=== PATIENT | female | born 1975 | race Two or more races ===

== ENCOUNTER 2017-02-01 08:23 | Emergency (ER) | payer OTHER ==
[2017-02-01 08:29] VITALS: TEMP 98.3; BMI 28.8
[2017-02-01] MEDS ORDERED: SODIUM CHLORIDE 0.9% 1000 ML INFUS.BAG IV ONE (09:06)
--- NOTE | 2017-02-01 09:15 | PDOC ---
History of Present Illness - General Chief Complaint: Vaginal Bleeding Stated Complaint: abd pain/ VAGINAL BLEEDING Time Seen by Provider: 02/01/17 08:34 History Source: Patient Exam Limitations: Language Barrier (Supervisor Front and nurse used for interpretation) - History of Present Illness Initial Comments: 02/01/17 09:09 The patient is a 41F with a PMH of anemia and colon CA s/p resection who presents to the ED with complaints of abdominal pain. An natural resources engineer was used and I had a nurse at bedside that helped me interpret as well. The patient states that she has had vaginal bleeding x 2 months. She has had worsening suprapubic abdominal pain with clots passing x 5 days. She states the pain feels like her menstrual cramps. It has been intermediate, worsening abdominal pain. The patient has a hx of colon ca s/p resection and had a colonoscopy yesterday to monitor for colon ca progression. She states that her abdominal pain has been worsened since the colonoscopy. All: none Surg: colon resection 1 year ago Past History - Past Medical History Allergies/Adverse Reactions: Allergies Allergy/AdvReac Type Severity Reaction Status Date / Time No Known Allergies Allergy Verified 02/01/17 08:25 Home Medications: Ambulatory Orders NK [No Known Home Medication] 02/01/17 Anemia: Yes Suicide Attempt (Hx): No - Surgical History Abdominal Surgery: Yes (colon) - Immunization History Immunization Up to Date: Yes - Psycho/Social/Smoking Cessation Hx Anxiety: No Suicidal Ideation: No Smoking History: Never smoked Have you smoked in the past 12 months: No Information on smoking cessation initiated: No Hx Alcohol Use: No Drug/Substance Use Hx: No Substance Use Type: None Hx Substance Use Treatment: No Review of Systems - Review of Systems Able to Perform ROS?: Yes (Vice Provost used) Is the patient limited Yoruba proficient: Yes Constitutional: Yes: Fever (x 5 days). No: Chills Respiratory: No: Shortness of Breath Cardiac (ROS): No: Chest Pain, Chest Tightness ABD/GI: No: Constipated, Diarrhea, Nausea, Vomiting : Yes: Hematuria, Other (passing clots; vag bleeding). No: Discharge Neurological: No: Headache, Numbness, Tingling, Weakness *Physical Exam - Vital Signs Last Vital Signs Temp Pulse Resp BP Pulse Ox 98.3 F 77 18 138/89 100 02/01/17 08:26 02/01/17 08:26 02/01/17 08:26 02/01/17 08:26 02/01/17 08:26 - Physical Exam General Appearance: Yes: Nourished, Appropriately Dressed, Mild Distress HEENT: positive: Normal Voice, Hearing Grossly Normal Respiratory/Chest: positive: Lungs Clear, Normal Breath Sounds. negative: Chest Tender, Respiratory Distress Cardiovascular: positive: Regular Rhythm, Regular Rate, S1, S2. negative: Diastolic Murmur, Systolic Murmur Gastrointestinal/Abdominal: positive: Flat, Soft, Other (tenderness to deep palpation over suprapubis). negative: Tender Musculoskeletal: positive: CVA Tenderness (R) Integumentary: positive: Dry, Warm. negative: Clammy, Swelling Neurologic: positive: Normal Mood/Affect, Motor Strength 10/22 ED Treatment Course - LABORATORY CBC & Chemistry Diagram: 02/01/17 09:17 02/01/17 09:17 Medical Decision Making - Medical Decision Making 02/01/17 09:33 The patient is a 41F with a PMH of anemia and colon ca s/p resection who presents with 2 months of vaginal bleeding that has worsened over the past 5 days. It is accompanied with menstrual-like pain. I will order a CXR to r/o perforation 2/2 colonoscopy. Pending labs. Will perform pelvic exam. 02/01/17 14:42 Patient US shows enlarged ovaries d/t hemorrhagic or infectious process. Patient does not know who her box car checker dr is so I will place a page to the impregnating machine operator collection advisor. 02/01/17 15:[address] Smith over the phone and she is not concerned for a hemorrhagic process, torsion, or an infectious process. She states that the patient should follow up outpatient and go to the [place] [facility] and let them know it is emergent so they can see her sooner. 02/01/17 18:34 Patient can tolerate PO, is no longer in pain, and will follow up with per GROCERY CLERK STOCKING. She is ready for d/c. *DC/Admit/Observation/Transfer Diagnosis at time of Disposition: Vaginal bleeding - Discharge Dispostion Disposition: HOME Condition at time of disposition: Improved Admit: No - Patient Instructions Additional Instructions: Please return to the ER if symptoms persist, worsen, or if new symptoms arise. Please follow up with your television parts tester for an appointment and show them the results of your CT scan. Por favor regrese a la chip de emergencias si los sntomas persisten, empeoran o si surgen nuevos sntomas. Por favor, siga con cortes gineclogo para eugene vianey y mostrarles los resultados de cortes tomografa computarizada. - Attestations Physician Attestion: 02/01/17 18:36 I, Dr. Greg Sierra, attest that this document has been prepared under my direction and personally reviewed by me in its entirety. I further attest, that it accurately reflects all work, treatment, procedures and medical decision -making performed by me.
[2017-02-01 09:28] LABS: BASOPHIL 1.1 % (0-2.0); EOSINOPHIL 2.9 % (0-4.5); MCH 31.6 pg (25.7-33.7); MCHC 32.9 g/dl (32.0-36.0); MEAN PLT VOLUME 8.4 fl (7.5-11.1); NEUTROPHILS 55.1 % (42.8-82.8); PLATELET COUNT 246 K/MM3 (134-434); RDW 13.7 % (11.6-15.6)
[2017-02-01 09:30] LABS: URINE APPEARANCE CLEAR; URINE BILIRUBIN NEGATIVE (NEGATIVE); URINE BLOOD 2+ (NEGATIVE); URINE COLOR COLORLESS; URINE GLUCOSE (UA) NEGATIVE (NEGATIVE); URINE KETONE NEGATIVE (NEGATIVE); URINE LEUK ESTERASE NEGATIVE (NEGATIVE); URINE NITRITE NEGATIVE (NEGATIVE); URINE PROTEIN NEGATIVE (NEGATIVE); URINE UROBILINOGEN NEGATIVE mg/dL (0.2-1.0)
[2017-02-01 09:36] LABS: URINE BACTERIA RARE /hpf (NONE SEEN); URINE RBC <1 /hpf (0-3); URINE WBC <1 /hpf (3-5)
[2017-02-01 09:46] LABS: INR 1.21 (0.82-1.09); PROTHROMBIN TIME (PATIENT) 13.4 SEC (9.98-11.88)
[2017-02-01 09:58] LABS: ALBUMIN 4.2 g/dl (3.4-5.0); ALK PHOS 55 U/L (45-117); ANION GAP 6 (8-16); BILIRUBIN,TOTAL 0.8 mg/dL (0.2-1.0); CALCIUM 9.2 mg/dL (8.5-10.1); CO2 29 mmol/L (21-32); CREATININE 0.8 mg/dL (0.55-1.02); GLUCOSE,RANDOM 94 mg/dL (74-106); SGOT/AST 21 U/L (15-37); SGPT/ALT 26 U/L (12-78); TOT PROT 7.8 g/dl (6.4-8.2)
[2017-02-01] MEDS ORDERED: KETOROLAC TROMETHAMINE 30 MG/1 ML VIAL IVPUSH ONE (10:48)
[2017-02-01] MEDS ORDERED: KETOROLAC TROMETHAMINE 30 MG/1 ML VIAL ONE (11:22)
--- NOTE | 2017-02-01 11:48 | PDOC ---
Attending Attestation - Resident Resident Name: JerseyGreg patel - ED Attending Attestation I have performed the following: I have examined & evaluated the patient, The case was reviewed & discussed with the resident, I agree w/resident's findings & plan, Exceptions are as noted - HPI HPI: 02/01/17 11:43 41 F with h/o anemia, colon CA s/p resection presents to ER with 5 days of abdominal pain and several weeks of vaginal bleed. Pt states that she has had diffuse abdominal pain with mild distention for the past 5 days. No N/V. Some diarrhea. Pt had a colonoscopy yesterday that she states made the pain worse. She denies F/C. Pt also reports vaginal spotting for several weeks. Is scheduled to see her Ob later this month. - Physicial Exam PE: 02/01/17 11:45 "GENERAL: Awake, alert, and fully oriented, in no acute distress HEAD: No signs of trauma EYES: PERRLA, EOMI, sclera anicteric, conjunctiva clear ENT: Auricles normal inspection, hearing grossly normal, nares patent, oropharynx clear without exudates. Moist mucosa NECK: Normal ROM, supple, no lymphadenopathy, JVD, or masses LUNGS: Breath sounds equal, clear to auscultation bilaterally. No wheezes, and no crackles HEART: Regular rate and rhythm, normal S1 and S2, no murmurs, rubs or gallops ABDOMEN: Soft, mildly distended, diffusely tender, most notably in RUQ and suprapubic region, No guarding, no rebound. No masses EXTREMITIES: Normal range of motion, no edema. No clubbing or cyanosis. No cords, erythema, or tenderness NEUROLOGICAL: Cranial nerves II through XII grossly intact. Normal speech, normal gait SKIN: Warm, Dry, normal turgor, no rashes or lesions noted. " - Medical Decision Making 02/01/17 11:46 41 F with diffuse abdominal pain and vaginal spotting. Vaginal spotting - will r /o ectopic or spontaneous Ab with UPT. Abdominal pain - will r/o acute sherice with US and also obtain TVUS to r/o pelvic pathology. Perf is unlikely as pt's symptoms began prior to colonoscopy, but will consider CT to r/ o perf if US is unremarkable. - Labs - XR - TVUS, RUQ US - Reassess, possible CTAP 02/01/17 15:40 TVUS with large heterogeneous masses on b/l ovaries, concerning for hemorrhagic vs infectious process. Spoke with on-call OB, who reviewed report and does not feel this is concerning for acute infectious process. Will proceed with CTAP given recent colonoscopy and abdominal pain to r/o perforation. - CTAP
[2017-02-01 18:53] VITALS: BP 142/75; PULSE 75
== END 2017-02-01 18:53 | disposition home or self-care (01) ==
LOC: JER 08:23
PROC: 3E0333Z Introduction of Anti-inflammatory into Peripheral Vein, Percutaneous Approach (ICD-10-PCS; principal; 2017-02-01)
DX: N93.9 Abnormal uterine and vaginal bleeding, unspecified (principal); D64.9 Anemia, unspecified; Z85.038 Personal history of other malignant neoplasm of large intestine
CPT/HCPCS: 36415; 71020-TC; 74177-TC; 76705-TC; 76830-TC; 76856-TC; 80053; 81003; 81015; 83690; 84702; 85025; 85610; 86850; 86900; 86901; 87086; 96374; 99284-25

== ENCOUNTER 2017-02-18 04:02 | Inpatient (IN) | payer OTHER ==
--- NOTE | 2017-02-18 04:23 | PDOC ---
History of Present Illness - General History Source: Patient Exam Limitations: No Limitations - History of Present Illness Initial Comments: 02/18/17 04:43 The patient is a 41 year old female, with a significant past medical history of h/o anemia, colon CA s/p resection who presents to the emergency department with abdominal pain. Patient reports diffuse abdominal pain, associated with nausea and vomiting. Patient states her pain radiates to her upper neck and down to her lower back. Patient reports decreased appetite and presents to the ED for further evaluation. Patient denies any sick contacts or recent travel. Patient was previously seen on 02/01/2017 for lower abdominal pain and vaginal bleeding. Patient was told to follow up with her DIRECTOR SOFTWARE. She denies chest pain, headache or dizziness. She denies fever, chills, diarrhea or constipation. She denies dysuria, frequency, urgency or hematuria. Allergies: NKA Past surgical history:Colon resection Social history: None PCP: Dr. Cindi Zacarias <Brittany Dallas - Last Filed: 02/18/17 04:42> - General History Source: Patient <Sherif Espinoza - Last Filed: 02/22/17 19:35> - General Chief Complaint: Pain, Acute Stated Complaint: ABDOMINAL AND NECK PAIN Time Seen by Provider: 02/18/17 04:22 Past History <Brittany Dallas - Last Filed: 02/18/17 04:42> - Past Medical History Anemia: Yes Suicide Attempt (Hx): No - Surgical History Abdominal Surgery: Yes (colon) - Reproductive History (#): 4 Para: 3 Spontaneous : 1 - Immunization History Immunization Up to Date: Yes - Psycho/Social/Smoking Cessation Hx Anxiety: No Suicidal Ideation: No Smoking History: Never smoked Have you smoked in the past 12 months: No Information on smoking cessation initiated: No Hx Alcohol Use: No Drug/Substance Use Hx: No Substance Use Type: None Hx Substance Use Treatment: No <Sherif Espinoza - Last Filed: 02/22/17 19:35> - Past Medical History Allergies/Adverse Reactions: Allergies Allergy/AdvReac Type Severity Reaction Status Date / Time No Known Allergies Allergy Verified 02/18/17 04:20 Home Medications: Ambulatory Orders Cefuroxime Axetil [Ceftin -] 500 mg PO Q12H #10 tablet 02/22/17 Review of Systems - Review of Systems Able to Perform ROS?: Yes Comments:: 02/18/17 04:43 GENERAL/CONSTITUTIONAL: No fever or chills. No weakness. HEAD, EYES, EARS, NOSE AND THROAT: No change in vision. No ear pain or discharge. No sore throat. GASTROINTESTINAL: +abdominal pain, nausea, vomiting. No diarrhea or constipation. GENITOURINARY: No dysuria, frequency, or change in urination. CARDIOVASCULAR: No chest pain or shortness of breath. RESPIRATORY: No cough, wheezing, or hemoptysis. MUSCULOSKELETAL: No joint or muscle swelling or pain. No neck or back pain. SKIN: No rash NEUROLOGIC: No headache, vertigo, loss of consciousness, or change in strength/ sensation. ENDOCRINE: No increased thirst. No abnormal weight change. HEMATOLOGIC/LYMPHATIC: No anemia, easy bleeding, or history of blood clots. ALLERGIC/IMMUNOLOGIC: No hives or skin allergy. <Brittany Dallas - Last Filed: 02/18/17 04:42> *Physical Exam - Vital Signs Last Vital Signs Temp Pulse Resp BP Pulse Ox 98.4 F 117 H 20 107/73 96 02/18/17 04:21 02/18/17 04:21 02/18/17 04:21 02/18/17 04:21 02/18/17 04:21 - Physical Exam Comments: 02/18/17 04:43 GENERAL: Awake, alert, and fully oriented, in +moderate distress HEAD: No signs of trauma EYES: PERRLA, EOMI, sclera anicteric, conjunctiva clear ENT: Auricles normal inspection, hearing grossly normal, nares patent, oropharynx clear without exudates. Moist mucosa NECK: Normal ROM, supple, no lymphadenopathy, JVD, or masses LUNGS: Breath sounds equal, clear to auscultation bilaterally. No wheezes, and no crackles HEART: Regular rate and rhythm, normal S1 and S2, no murmurs, rubs or gallops ABDOMEN: +diffusely tender abdomen. Normoactive bowel sounds. No guarding, no rebound but minimal guarding. No masses EXTREMITIES: Normal range of motion, no edema. No clubbing or cyanosis. No cords, erythema, or tenderness NEUROLOGICAL: Cranial nerves II through XII grossly intact. Normal speech, normal gait SKIN: Warm, Dry, normal turgor, no rashes or lesions noted. <Brittany Dallas - Last Filed: 02/18/17 04:42> - Vital Signs Last Vital Signs Temp Pulse Resp BP Pulse Ox 98.4 F 117 H 20 107/73 96 02/18/17 04:21 02/18/17 04:21 02/18/17 04:21 02/18/17 04:21 02/18/17 04:21 <Sherif Espinoza - Last Filed: 02/22/17 19:35> ED Treatment Course - LABORATORY CBC & Chemistry Diagram: 02/18/17 04:35 02/18/17 04:35 - Medications Given in the ED: ED Medications Discontinued Medications Generic Name Dose Route Start Last Admin Trade Name Mirna PRN Reason Stop Dose Admin Dicyclomine HCl 20 mg 02/18/17 04:25 02/18/17 04:42 Bentyl Injection - IM 02/18/17 04:26 Not Given ONCE ONE Morphine Sulfate 8 mg 02/18/17 04:29 02/18/17 04:41 Morphine Injection - IVPUSH 02/18/17 04:30 8 mg ONCE ONE Administration Ondansetron HCl 4 mg 02/18/17 04:29 02/18/17 04:41 Zofran Injection IVPUSH 02/18/17 04:30 4 mg ONCE STA Administration <Brittany Dallas - Last Filed: 02/18/17 04:42> - LABORATORY CBC & Chemistry Diagram: 02/22/17 07:30 02/22/17 07:30 <Sherif Espinoza - Last Filed: 02/22/17 19:35> Medical Decision Making - Medical Decision Making 02/22/17 19:35 Dr. Espinoza: The scribe's documentation has been prepared under my direction and personally reviewed by me in its entirery. I confirm that the note above accurately reflects all work, treatment, procedures, and medical decision making performed by me. <Sherif Espinoza - Last Filed: 02/22/17 19:35> *DC/Admit/Observation/Transfer - Attestations Scribe Attestion: 02/18/17 04:43 Documentation prepared by Brittany Dallas, acting as medical record coder for Sherif Espinoza DO. <Brittany Dallas - Last Filed: 02/18/17 04:42> - Discharge Dispostion Admit: No <LupilloSherif wright - Last Filed: 02/22/17 19:35> Diagnosis at time of Disposition: Ovarian mass Ascites Qualifiers: Ascites type: other type Qualified Code(s): R18.8 - Other ascites Abdominal pain Qualifiers: Abdominal location: unspecified location Qualified Code(s): R10.9 - Unspecified abdominal pain - Discharge Dispostion Disposition: HOME Condition at time of disposition: Stable - Prescriptions
[2017-02-18] MEDS ORDERED: SODIUM CHLORIDE 1,000 ML IV STA (04:24)
[2017-02-18] MEDS ORDERED: DICYCLOMINE HCL 20 MG/2 ML AMPUL IM ONE (04:25)
[2017-02-18] MEDS ORDERED: morphine CARPU-JECT 2 MG/1 ML DISP.SYRIN IVPUSH ONE ×2 (04:29→05:36)
[2017-02-18] MEDS ORDERED: ONDANSETRON 4 MG/2 ML VIAL IVPUSH STA (04:29)
[2017-02-18] MEDS ORDERED: morphine CARPU-JECT 10 MG/1 ML DISP.SYRIN ONE ×2 (04:37→05:36)
[2017-02-18] MEDS ORDERED: ONDANSETRON 4 MG/2 ML VIAL ONE (04:37)
[2017-02-18 04:48] LABS: BASOPHIL 0.5 % (0-2.0); MCH 32.1 pg (25.7-33.7); MCHC 33.9 g/dl (32.0-36.0); MEAN CELL VOLUME 94.5 fl (80-96); MEAN PLT VOLUME 9.1 fl (7.5-11.1); NEUTROPHILS 83.6 % (42.8-82.8); PLATELET COUNT 265 K/MM3 (134-434); RDW 13.4 % (11.6-15.6); WHITE BLOOD COUNT 7.2 K/mm3 (4.0-10.0)
[2017-02-18 05:19] LABS: ALBUMIN 3.8 g/dl (3.4-5.0); ALK PHOS 62 U/L (45-117); ANION GAP 8 (8-16); BILIRUBIN,TOTAL 0.4 mg/dL (0.2-1.0); CALCIUM 8.8 mg/dL (8.5-10.1); CO2 27 mmol/L (21-32); CREATININE 0.8 mg/dL (0.55-1.02); GLUCOSE,RANDOM 116 mg/dL (74-106); SGOT/AST 60 U/L (15-37); SGPT/ALT 26 U/L (12-78); TOT PROT 7.3 g/dl (6.4-8.2)
[2017-02-18] MEDS ORDERED: morphine CARPU-JECT 4 MG/1 ML DISP.SYRIN IVPUSH ONE (07:21)
[2017-02-18] MEDS ORDERED: morphine CARPU-JECT 2 MG/1 ML DISP.SYRIN ONE (07:36)
--- NOTE | 2017-02-18 08:36 | PDOC ---
*Physical Exam - Vital Signs Last Vital Signs Temp Pulse Resp BP Pulse Ox 98.3 F 98 H 20 138/88 98 02/18/17 08:39 02/18/17 08:39 02/18/17 08:39 02/18/17 08:39 02/18/17 08:39 <Pablo Mendieta - Last Filed: 02/18/17 08:42> - Vital Signs Last Vital Signs Temp Pulse Resp BP Pulse Ox 98.4 F 117 H 20 107/73 96 02/18/17 04:21 02/18/17 04:21 02/18/17 04:21 02/18/17 04:21 02/18/17 04:21 <Sp Oro - Last Filed: 02/19/17 10:56> ED Treatment Course - LABORATORY CBC & Chemistry Diagram: 02/18/17 04:35 02/18/17 04:35 - ADDITIONAL ORDERS Additional order review: Laboratory Results 02/18/17 02/18/17 04:35 04:35 Sodium 139 Potassium 3.9 Chloride 104 Carbon Dioxide 27 Anion Gap 8 BUN 13 D Creatinine 0.8 Creat Clearance w eGFR > 60 Random Glucose 116 H D Calcium 8.8 Magnesium 2.0 Total Bilirubin 0.4 D AST 60 H D ALT 26 Alkaline Phosphatase 62 Total Protein 7.3 Albumin 3.8 Lipase 281 Serum , Qual Negative 02/18/17 04:35 RBC 4.24 MCV 94.5 MCHC 33.9 RDW 13.4 MPV 9.1 Neutrophils % 83.6 H D Lymphocytes % 9.5 D Monocytes % 5.4 Eosinophils % 1.0 Basophils % 0.5 - Medications Given in the ED: ED Medications Discontinued Medications Generic Name Dose Route Start Last Admin Trade Name Dangeloq PRN Reason Stop Dose Admin Dicyclomine HCl 20 mg 02/18/17 04:25 02/18/17 04:42 Bentyl Injection - IM 02/18/17 04:26 Not Given ONCE ONE Sodium Chloride 1,000 mls @ 1,000 mls/hr 02/18/17 04:24 02/18/17 04:41 Normal Saline - IV 02/18/17 05:23 1,000 mls/hr ASDIR STA Administration Morphine Sulfate 8 mg 02/18/17 04:29 02/18/17 04:41 Morphine Injection - IVPUSH 02/18/17 04:30 8 mg ONCE ONE Administration Morphine Sulfate 8 mg 02/18/17 05:36 02/18/17 05:42 Morphine Injection - IVPUSH 02/18/17 05:37 8 mg ONCE ONE Administration Morphine Sulfate 4 mg 02/18/17 07:21 02/18/17 07:36 Morphine Injection - IVPUSH 02/18/17 07:22 4 mg ONCE ONE Administration Ondansetron HCl 4 mg 02/18/17 04:29 02/18/17 04:41 Zofran Injection IVPUSH 02/18/17 04:30 4 mg ONCE STA Administration <Pablo Mendieta - Last Filed: 02/18/17 08:42> - LABORATORY CBC & Chemistry Diagram: 02/18/17 04:35 02/18/17 04:35 - ADDITIONAL ORDERS Additional order review: Laboratory Results 02/18/17 02/18/17 04:35 04:35 Sodium 139 Potassium 3.9 Chloride 104 Carbon Dioxide 27 Anion Gap 8 BUN 13 D Creatinine 0.8 Creat Clearance w eGFR > 60 Random Glucose 116 H D Calcium 8.8 Magnesium 2.0 Total Bilirubin 0.4 D AST 60 H D ALT 26 Alkaline Phosphatase 62 Total Protein 7.3 Albumin 3.8 Lipase 281 Serum , Qual Negative 02/18/17 04:35 RBC 4.24 MCV 94.5 MCHC 33.9 RDW 13.4 MPV 9.1 Neutrophils % 83.6 H D Lymphocytes % 9.5 D Monocytes % 5.4 Eosinophils % 1.0 Basophils % 0.5 - RADIOLOGY Radiology Studies Ordered: Category Date Time Status TRANSVAGINAL ULTRASOUND US [US] Stat Ultrasound 02/18/17 08:25 Ordered - Medications Given in the ED: ED Medications Discontinued Medications Generic Name Dose Route Start Last Admin Trade Name Freq PRN Reason Stop Dose Admin Dicyclomine HCl 20 mg 02/18/17 04:25 02/18/17 04:42 Bentyl Injection - IM 02/18/17 04:26 Not Given ONCE ONE Sodium Chloride 1,000 mls @ 1,000 mls/hr 02/18/17 04:24 02/18/17 04:41 Normal Saline - IV 02/18/17 05:23 1,000 mls/hr ASDIR STA Administration Morphine Sulfate 8 mg 02/18/17 04:29 02/18/17 04:41 Morphine Injection - IVPUSH 02/18/17 04:30 8 mg ONCE ONE Administration Morphine Sulfate 8 mg 02/18/17 05:36 02/18/17 05:42 Morphine Injection - IVPUSH 02/18/17 05:37 8 mg ONCE ONE Administration Morphine Sulfate 4 mg 02/18/17 07:21 02/18/17 07:36 Morphine Injection - IVPUSH 02/18/17 07:22 4 mg ONCE ONE Administration Ondansetron HCl 4 mg 02/18/17 04:29 02/18/17 04:41 Zofran Injection IVPUSH 02/18/17 04:30 4 mg ONCE STA Administration <Sp Oro - Last Filed: 02/19/17 10:56> Medical Decision Making - Medical Decision Making 02/18/17 08:[address] Burt Houston @8:35am. Awaiting Call back. <Pablo Mendieta - Last Filed: 02/18/17 08:42> - Medical Decision Making 02/18/17 08:36 Sign-out received from outgoing Emergency Physician Dr. Espinoza Pt interviewed and examined Ancillary studies reviewed Case discussed in detail with oncoming Emergency Physician including history, physical exam and ancillary studies. CAT scan reviewed. X-rays moderate amount of ascites which could be neoplastic in origin. Large bilateral pelvic masses potentially related to the ovaries so must consider ovarian neoplasm. Transvaginal ultrasound ordered to evaluate the ovaries. I discussed this with the patient via phone it desktop support technician [phone] [place] regarding the results. The patient did state she had 3 months of pain but acutely worse in the last 2 weeks. She had seen a supervisor sample preparation by the name of Dr. Burt Houston [phone] who obtained an ultrasound and states that she had abnormal ultrasound and requested the patient come back in the next several days. However , the patient's been having persistent uncontrollable abdominal pain. Patient will need to be admitted for inpatient workup regarding the ovarian masses and cancer. I discussed my concerns for potential malignancy to the patient who understands. Pt's PMD: Dr. García'Official CBC, BMP 02/18/17 04:35 02/18/17 04:35 CMP Sodium 139 mmol/L (136-145) 02/18/17 04:35 Potassium 3.9 mmol/L (3.5-5.1) 02/18/17 04:35 Chloride 104 mmol/L (98-107) 02/18/17 04:35 Carbon Dioxide 27 mmol/L (21-32) 02/18/17 04:35 Anion Gap 8 (8-16) 02/18/17 04:35 BUN 13 mg/dL (7-18) D 02/18/17 04:35 Creatinine 0.8 mg/dL (0.55-1.02) 02/18/17 04:35 Creat Clearance w eGFR > 60 (>60) 02/18/17 04:35 Random Glucose 116 mg/dL (74-106) H D 02/18/17 04:35 Calcium 8.8 mg/dL (8.5-10.1) 02/18/17 04:35 Magnesium 2.0 mg/dL (1.8-2.4) 02/18/17 04:35 Total Bilirubin 0.4 mg/dL (0.2-1.0) D 02/18/17 04:35 AST 60 U/L (15-37) H D 02/18/17 04:35 ALT 26 U/L (12-78) 02/18/17 04:35 Alkaline Phosphatase 62 U/L (45-117) 02/18/17 04:35 Total Protein 7.3 g/dl (6.4-8.2) 02/18/17 04:35 Albumin 3.8 g/dl (3.4-5.0) 02/18/17 04:35 Lipase 281 U/L (73-393) 02/18/17 04:35 Serum , Qual Negative 02/18/17 04:[address] Burt archibald. Case discussed with [facility] hospitalist. Will admit to med/surg admission. Case discussed in detail with admitting physician including history, physical exam and ancillary studies. Admitting physician has assumed care for the patient, will follow all pending diagnostics and will complete the evaluation and treatment. <Sp Oro - Last Filed: 02/19/17 10:56> *DC/Admit/Observation/Transfer - Attestations Scribe Attestion: 02/18/17 08:43 Documentation prepared by Pablo Mendieta, acting as vp medical for Sp Oro MD. <aPblo Mendieta - Last Filed: 02/18/17 08:42> - Discharge Dispostion Admit: Yes <Sp Oro - Last Filed: 02/19/17 10:56> Diagnosis at time of Disposition: Ovarian mass Ascites Qualifiers: Ascites type: other type Qualified Code(s): R18.8 - Other ascites Abdominal pain Qualifiers: Abdominal location: unspecified location Qualified Code(s): R10.9 - Unspecified abdominal pain - Referrals - Patient Instructions - Post Discharge Activity
[2017-02-18] MEDS ORDERED: ONDANSETRON 4 MG/2 ML VIAL IVPB PRN (09:07)
[2017-02-18] MEDS ORDERED: HYDROmorphone HCL CARPU-JECT 1 MG/1 ML DISP.SYRIN ONE (09:08)
[2017-02-18] MEDS ORDERED: HYDROmorphone HCL CARPU-JECT 1 MG/1 ML DISP.SYRIN IVPB ONE (09:08)
--- NOTE | 2017-02-18 09:36 | HP ---
CHIEF COMPLAINT: Worsening abdominal pain PCP: Dr. Cindi Zacarias HISTORY OF PRESENT ILLNESS: 41 yo F h/o anemia and colon CA s/p resection presented to the ED accompanied by with worsening abdominal pain x 2 weeks. The pain is chronic for 3 months, suprapubic, worsening acutely after colonoscopy 3 weeks ago, constant, intractable, 10/10, non-radiating, a/w vaginal spotting and clot x 5 days about 2 tampons daily. Denies chest pain, shortness of breath, breast discharge, malodorous vaginal discharge, weight loss, ER course was notable for: (1) CT abd notable for b/l ovarian masses + ascites (2) Hemodynamically stable (3) Intractable pain after dilaudid and morphine Recent Travel: Denies PAST MEDICAL HISTORY: Anemia and colon CA PAST SURGICAL HISTORY: Colon resection Social History: Smoking: Denies Alcohol: Denies Drugs: Denies Family History: Allergies No Known Allergies Allergy (Verified 02/18/17 04:20) HOME MEDICATIONS: Home Medications Medication Instructions Recorded NK [No Known Home Medication] 02/01/17 REVIEW OF SYSTEMS CONSTITUTIONAL: Absent: fever, chills, diaphoresis, generalized weakness, malaise, loss of appetite, weight change HEENT: Absent: rhinorrhea, nasal congestion, throat pain, throat swelling, difficulty swallowing, mouth swelling, ear pain, eye pain, visual changes CARDIOVASCULAR: Absent: chest pain, syncope, palpitations, irregular heart rate, lightheadedness , peripheral edema RESPIRATORY: Absent: cough, shortness of breath, dyspnea with exertion, orthopnea, wheezing, stridor, hemoptysis GASTROINTESTINAL:abdominal pain Absent: , abdominal distension, nausea, vomiting, diarrhea, constipation, melena , hematochezia GENITOURINARY: Absent: dysuria, frequency, urgency, hesitancy, hematuria, flank pain, genital pain MUSCULOSKELETAL: Absent: myalgia, arthralgia, joint swelling, back pain, neck pain SKIN: Absent: rash, itching, pallor HEMATOLOGIC/IMMUNOLOGIC: Absent: easy bleeding, easy bruising, lymphadenopathy, frequent infections ENDOCRINE: Absent: unexplained weight gain, unexplained weight loss, heat intolerance, cold intolerance NEUROLOGIC: Absent: headache, focal weakness or paresthesias, dizziness, unsteady gait, seizure, mental status changes, bladder or bowel incontinence PSYCHIATRIC: Absent: anxiety, depression, suicidal or homicidal ideation, hallucinations. PHYSICAL EXAMINATION Last Vital Signs Temp Pulse Resp BP Pulse Ox 98.3 F 98 H 20 138/88 98 02/18/17 08:39 02/18/17 08:39 02/18/17 08:39 02/18/17 08:39 02/18/17 08:39 GENERAL: AAO x 3, in pain but no acute cardiopulmonary distress HEAD: Normal with no signs of trauma. EYES: Pupils equal, round and reactive to light, extraocular movements intact, sclera anicteric, conjunctiva clear. No lid lag. EARS, NOSE, THROAT: Ears normal, nares patent, oropharynx clear without exudates. Moist mucous membranes. NECK: Normal range of motion, supple without lymphadenopathy, JVD, or masses. LUNGS: Breath sounds equal, clear to auscultation bilaterally. No wheezes, and no crackles. No accessory muscle use. HEART: Regular rate and rhythm, normal S1 and S2 without murmur, rub or gallop. ABDOMEN: Soft, nontender, not distended, normoactive bowel sounds, no guarding, no rebound, no masses. No hepatomegaly or splenomegaly. MUSCULOSKELETAL: Normal range of motion at all joints. No bony deformities or tenderness. No CVA tenderness. UPPER EXTREMITIES: 2+ pulses, warm, well-perfused. No cyanosis. No clubbing. No peripheral edema. LOWER EXTREMITIES: 2+ pulses, warm, well-perfused. No calf tenderness. No peripheral edema. NEUROLOGICAL: Cranial nerves II-XII intact. Normal speech. Normal gait. PSYCHIATRIC: Cooperative. Good eye contact. Appropriate mood and affect. SKIN: Warm, dry, normal turgor, no rashes or lesions noted, normal capillary refill. CBCD WBC 7.2 K/mm3 (4.0-10.0) D 02/18/17 04:35 RBC 4.24 M/mm3 (3.60-5.2) 02/18/17 04:35 Hgb 13.6 GM/dL (10.7-15.3) 02/18/17 04:35 Hct 40.1 % (32.4-45.2) 02/18/17 04:35 MCV 94.5 fl (80-96) 02/18/17 04:35 MCHC 33.9 g/dl (32.0-36.0) 02/18/17 04:35 RDW 13.4 % (11.6-15.6) 02/18/17 04:35 Plt Count 265 K/MM3 (134-434) 02/18/17 04:35 MPV 9.1 fl (7.5-11.1) 02/18/17 04:35 CMP Sodium 139 mmol/L (136-145) 02/18/17 04:35 Potassium 3.9 mmol/L (3.5-5.1) 02/18/17 04:35 Chloride 104 mmol/L (98-107) 02/18/17 04:35 Carbon Dioxide 27 mmol/L (21-32) 02/18/17 04:35 Anion Gap 8 (8-16) 02/18/17 04:35 BUN 13 mg/dL (7-18) D 02/18/17 04:35 Creatinine 0.8 mg/dL (0.55-1.02) 02/18/17 04:35 Creat Clearance w eGFR > 60 (>60) 02/18/17 04:35 Calcium 8.8 mg/dL (8.5-10.1) 02/18/17 04:35 Total Bilirubin 0.4 mg/dL (0.2-1.0) D 02/18/17 04:35 AST 60 U/L (15-37) H D 02/18/17 04:35 ALT 26 U/L (12-78) 02/18/17 04:35 Alkaline Phosphatase 62 U/L (45-117) 02/18/17 04:35 Total Protein 7.3 g/dl (6.4-8.2) 02/18/17 04:35 Albumin 3.8 g/dl (3.4-5.0) 02/18/17 04:[address] abd on 02/18: b/l ovarian masses suspicious for malignancy with moderate amount of ascites ASSESSMENT/PLAN: 41 yo F h/o anemia and colon CA s/p resection admitted to med-surg to r/o ovarian cancer. Bilateral ovarian masses, complex - Likely primary - Morphine 4mg PRN - Zofran 8mg PRN - Cloth Dyer and hemonc consults Colon CA s/p resection - Stable - Outpatient management Anemia - Resolved, Likely transient on prior admission FEN - NS 125 cc/hr - Normal lytes - NPO for now Prophylaxis - DVT: lovenox 40mg daily - GI: not indicated Dispo - Admitted to med-surg pending hemonc and steam and gas turbines assembler workup Visit type - Emergency Visit Emergency Visit: Yes ED Registration Date: 02/18/17 Care time: The patient presented to the Emergency Department on the above date and was hospitalized for further evaluation of their emergent condition. - New Patient This patient is new to me today: Yes Date on this admission: 02/18/17 - Critical Care Critical Care patient: No
--- NOTE | 2017-02-18 09:37 | HP ---
CHIEF COMPLAINT: Worsening abdominal pain PCP: Dr. Cindi Zacarias GI: At [place], Name unable to obtain HISTORY OF PRESENT ILLNESS: 41 yo F h/o colon CA s/p chemotherapy presented to the ED with worsening abdominal pain x 3 weeks. The pain started after colonoscopy and became chronic for 1 month. However, in the last week the pain has been worsening and the new onset of nausea and vomiting this morning prompted her to come in the ED. The abd pain is diffusely across all quadrants, pressure-like, intermittently worsening, 8-9/10, non-radiating, moderately relieved with morphine, unrelated with position and diet, a/w increasing abdominal distension and bloating, vaginal spotting and clot x 1 week about 8 pads daily. Patient had routine surveillance colonoscopy 3 weeks ago at [place] and was instructed to see her supervisor home restoration service immediately for vaginal bleeding. Unfortunately she did not follow up with her supervisor home restoration service (Dr. Burt Houston, law firm partner attending at [facility]). Patient denies chest pain, shortness of breath, fever, chills, constipation, diarrhea, breast discharge, malodorous vaginal discharge, weight loss. ER course was notable for: (1) CT abd notable for b/l ovarian masses + ascites (2) Hemodynamically stable (3) Dr. Neal (Hemonc) and Dr. Alvarez (Research Professor) consulted Recent Travel: Denies PAST MEDICAL HISTORY: Anemia and colon CA diagnosed in 07/2014 s/p chemotherapy PAST SURGICAL HISTORY: None Social History: Smoking: Denies Alcohol: Denies Drugs: Denies Family History: Father and mother have HTN and diabetes but no h/o malignancy Siblings in good health Allergies No Known Allergies Allergy (Verified 02/18/17 04:20) HOME MEDICATIONS: Home Medications Medication Instructions Recorded NK [No Known Home Medication] 02/01/17 REVIEW OF SYSTEMS CONSTITUTIONAL: Absent: fever, chills, diaphoresis, generalized weakness, malaise, loss of appetite, weight change HEENT: Absent: rhinorrhea, nasal congestion, throat pain, throat swelling, difficulty swallowing, mouth swelling, ear pain, eye pain, visual changes CARDIOVASCULAR: Absent: chest pain, syncope, palpitations, irregular heart rate, lightheadedness , peripheral edema RESPIRATORY: Absent: cough, shortness of breath, dyspnea with exertion, orthopnea, wheezing, stridor, hemoptysis GASTROINTESTINAL:abdominal pain, abdominal distension, nausea, vomiting Absent: diarrhea, constipation, melena, hematochezia GENITOURINARY: Absent: dysuria, frequency, urgency, hesitancy, hematuria, flank pain, genital pain MUSCULOSKELETAL: Absent: myalgia, arthralgia, joint swelling, back pain, neck pain SKIN: Absent: rash, itching, pallor HEMATOLOGIC/IMMUNOLOGIC: Absent: easy bleeding, easy bruising, lymphadenopathy, frequent infections ENDOCRINE: Absent: unexplained weight gain, unexplained weight loss, heat intolerance, cold intolerance NEUROLOGIC: Absent: headache, focal weakness or paresthesias, dizziness, unsteady gait, seizure, mental status changes, bladder or bowel incontinence PSYCHIATRIC: Absent: anxiety, depression, suicidal or homicidal ideation, hallucinations. PHYSICAL EXAMINATION Last Vital Signs Temp Pulse Resp BP Pulse Ox 98.3 F 98 H 20 138/88 98 02/18/17 08:39 02/18/17 08:39 02/18/17 08:39 02/18/17 08:39 02/18/17 08:39 GENERAL: AAO x 3, in pain but no acute cardiopulmonary distress EYES: Pupils equal, round and reactive to light, extraocular movements intact, sclera anicteric, conjunctiva clear. EARS, NOSE, THROAT: oropharynx clear without exudates. Moist mucous membranes. LUNGS: CTAB HEART:RRR, normal S1 and S2 without murmur, rub or gallop. ABDOMEN: diffusely tender and moderately distended, normoactive bowel sounds, dull, no guarding, no rebound, no masses. EXTREMITIES: 2+ pulses, warm, well-perfused. No calf tenderness. No peripheral edema. SKIN: Warm, dry, normal turgor, no rashes or lesions noted, normal capillary refill. CBCD WBC 7.2 K/mm3 (4.0-10.0) D 02/18/17 04:35 RBC 4.24 M/mm3 (3.60-5.2) 02/18/17 04:35 Hgb 13.6 GM/dL (10.7-15.3) 02/18/17 04:35 Hct 40.1 % (32.4-45.2) 02/18/17 04:35 MCV 94.5 fl (80-96) 02/18/17 04:35 MCHC 33.9 g/dl (32.0-36.0) 02/18/17 04:35 RDW 13.4 % (11.6-15.6) 02/18/17 04:35 Plt Count 265 K/MM3 (134-434) 02/18/17 04:35 MPV 9.1 fl (7.5-11.1) 02/18/17 04:35 CMP Sodium 139 mmol/L (136-145) 02/18/17 04:35 Potassium 3.9 mmol/L (3.5-5.1) 02/18/17 04:35 Chloride 104 mmol/L (98-107) 02/18/17 04:35 Carbon Dioxide 27 mmol/L (21-32) 02/18/17 04:35 Anion Gap 8 (8-16) 02/18/17 04:35 BUN 13 mg/dL (7-18) D 02/18/17 04:35 Creatinine 0.8 mg/dL (0.55-1.02) 02/18/17 04:35 Creat Clearance w eGFR > 60 (>60) 02/18/17 04:35 Calcium 8.8 mg/dL (8.5-10.1) 02/18/17 04:35 Total Bilirubin 0.4 mg/dL (0.2-1.0) D 02/18/17 04:35 AST 60 U/L (15-37) H D 02/18/17 04:35 ALT 26 U/L (12-78) 02/18/17 04:35 Alkaline Phosphatase 62 U/L (45-117) 02/18/17 04:35 Total Protein 7.3 g/dl (6.4-8.2) 02/18/17 04:35 Albumin 3.8 g/dl (3.4-5.0) 02/18/17 04:35 IMAGING Transvaginal U/S on 02/18: b/l ovarian masses with ascites CT abd on 02/18: b/l ovarian masses suspicious for malignancy with moderate amount of ascites ASSESSMENT/PLAN: 41 yo F h/o colon CA s/p chemotherapy admitted to med-surg for malignancy workup. Bilateral ovarian masses, complex - r/o Lyon syndrome ([facility]) - Morphine 4mg PRN - Zofran 8mg PRN - Pre-op EKG, T&S - Research Professor and hemonc consults Colon CA s/p chemotherapy - Stable - Outpatient management Anemia - H&H wnl - Likely transient 2/2 menstruation on prior admission FEN - NS 125 cc/hr - Normal lytes - NPO for now Prophylaxis - DVT: lovenox 40mg daily - GI: not indicated Dispo - Admitted to med-surg pending hemonc and ob/gyn workup Visit type - Emergency Visit Emergency Visit: Yes ED Registration Date: 02/18/17 Care time: The patient presented to the Emergency Department on the above date and was hospitalized for further evaluation of their emergent condition. - New Patient This patient is new to me today: Yes Date on this admission: 02/18/17 - Critical Care Critical Care patient: No
[2017-02-18] MEDS: SODIUM CHLORIDE 1,000 ML IV SCH ×2 (10:44→18:33)
[2017-02-18] MEDS: ENOXAPARIN NA (PORCINE) 40 MG/0.4 ML DISP.SYRIN SQ SCH (10:53)
[2017-02-18 11:43] LABS: INR 1.23 (0.82-1.09); PROTHROMBIN TIME (PATIENT) 13.6 SEC (9.98-11.88)
--- NOTE | 2017-02-18 13:17 | PN ---
Teaching Attending Note Name of Resident: Wallace Hurley ATTENDING PHYSICIAN STATEMENT I saw and evaluated the patient. I reviewed the resident's note and discussed the case with the resident. I agree with the resident's findings and plan as documented. SUBJECTIVE: Patient is a 41yo female presented with diffuse abdominal pain. No fever or chills, no shortness of breath, no nausea or vomiting. OBJECTIVE: Vital Signs Temperature 98.2 F 02/18/17 10:15 Pulse Rate 95 H 02/18/17 10:15 Respiratory Rate 18 02/18/17 10:15 Blood Pressure 109/63 02/18/17 10:15 O2 Sat by Pulse Oximetry (%) 98 02/18/17 08:39 PE: Diffuse abdominal tenderness, positive for BS. NR, positive for voluntary guarding. rest of PE per resident's note. CBCD WBC 7.2 K/mm3 (4.0-10.0) D 02/18/17 04:35 RBC 4.24 M/mm3 (3.60-5.2) 02/18/17 04:35 Hgb 13.6 GM/dL (10.7-15.3) 02/18/17 04:35 Hct 40.1 % (32.4-45.2) 02/18/17 04:35 MCV 94.5 fl (80-96) 02/18/17 04:35 MCHC 33.9 g/dl (32.0-36.0) 02/18/17 04:35 RDW 13.4 % (11.6-15.6) 02/18/17 04:35 Plt Count 265 K/MM3 (134-434) 02/18/17 04:35 MPV 9.1 fl (7.5-11.1) 02/18/17 04:35 CMP Sodium 139 mmol/L (136-145) 02/18/17 04:35 Potassium 3.9 mmol/L (3.5-5.1) 02/18/17 04:35 Chloride 104 mmol/L (98-107) 02/18/17 04:35 Carbon Dioxide 27 mmol/L (21-32) 02/18/17 04:35 Anion Gap 8 (8-16) 02/18/17 04:35 BUN 13 mg/dL (7-18) D 02/18/17 04:35 Creatinine 0.8 mg/dL (0.55-1.02) 02/18/17 04:35 Creat Clearance w eGFR > 60 (>60) 02/18/17 04:35 Random Glucose 116 mg/dL (74-106) H D 02/18/17 04:35 Calcium 8.8 mg/dL (8.5-10.1) 02/18/17 04:35 Total Bilirubin 0.4 mg/dL (0.2-1.0) D 02/18/17 04:35 AST 60 U/L (15-37) H D 02/18/17 04:35 ALT 26 U/L (12-78) 02/18/17 04:35 Alkaline Phosphatase 62 U/L (45-117) 02/18/17 04:35 Total Protein 7.3 g/dl (6.4-8.2) 02/18/17 04:35 Albumin 3.8 g/dl (3.4-5.0) 02/18/17 04:35 Current Medications Generic Name Dose Route Start Last Admin Trade Name Freq PRN Reason Stop Dose Admin Enoxaparin Sodium 40 mg 02/18/17 10:00 02/18/17 10:53 Lovenox - SQ 40 mg DAILY VANESSA Administration Sodium Chloride 1,000 mls @ 125 mls/hr 02/18/17 09:15 02/18/17 10:44 Normal Saline - IV 125 mls/hr ASDIR VANESSA Administration Morphine Sulfate 4 mg 02/18/17 09:07 Morphine Injection - IVPUSH Q4H PRN PAIN Ondansetron HCl 4 mg 02/18/17 09:07 Zofran Injection IVPB Q6H PRN NAUSEA Transvaginal U/S on 02/18: b/l ovarian masses with ascites CT abd on 02/18: b/l ovarian masses suspicious for malignancy with moderate amount of ascites ASSESSMENT AND PLAN: Patient is a 41 yo F h/o colon CA s/p resection admitted to med-surg for malignancy workup. # Acute diffuse abdominal pain due to bl ovarian masses can't r/o malignancy. # Bilateral ovarian masses with moderate amout of ascites , with hx of colon cancer diagnosed a year ago () as per patient was treated with chemo, no family Hx of any cancer out of 9 children. OGYN consult, for consult. ID consulted for possible SBP. willstart the patient on Rocephin/Flagyl #Colon CA s/p chemotherapy s/p colonoscopy recently #Anemia most likely due to colon Cancer Hem/onc on the case # abdominal pain with ascites can't r/o SBP since patient is a high risk started on IV Rocephin/Flagyl ,Consulted ID, Panculture ordered. DVT Prophylaxis: lovenox 40mg daily
[2017-02-18] MEDS: morphine CARPU-JECT 2 MG/1 ML DISP.SYRIN IVPUSH PRN (14:35)
--- NOTE | 2017-02-18 17:02 | PN ---
Progress Note (short form) - Note Progress Note: Consult dictated Spoke with Dr. Tian Figueroa , patients treating oncologist. 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 High risk malignancy followed by 12 cycles of FOLFOX chemotherpy ( 5FU, Leucovorum, oxaliplatin). Treatment completed less than 1 year ago. Had loss of MLH-1 ,but no additional testing for Microsatellite instability performed. Presents now with 2 months of vaginal bleeding, ascites, and bilateral ovarian masses.Reportedly negative colonoscopy on February 02. Has tenderness and some rebound especially RLQ. Suggest CEA, Ca-125 Title I Coordinator Title I Coordinator onc GI ID Paracentesis Would begin antibiotics High risk ca makes metastatic disease worrisome, and possible Lyon syndrome makes second ovarian primary a consideration. Will follow.
--- NOTE | 2017-02-18 17:58 | CONS ---
DATE OF CONSULTATION: DATE OF DICTATION: 02/18/2017 HISTORY OF PRESENT ILLNESS: This is a 41-year-old female being seen for evaluation of bilateral ovarian masses as well as ascites. I spoke to the patient's medical oncologist, Dr. Tian Figueroa, who has been taking care of this patient. The patient underwent a sigmoid resection for a T4 N2b adenocarcinoma of the colon. It had lymphovascular invasion. The tumor went into the serosa, making it a T4 lesion, and had 10 positive nodes, making it an N2b lesion. There was no obvious metastases. The patient was treated with 12 cycles of FOLFOX chemotherapy and completed her chemotherapy less than 1 year ago. The patient now enters with a 2-month history of vaginal spotting. She recently saw the light adjuster and was scheduled to return next week. She underwent on February 02 the colonoscopy which she states was unremarkable. Recent CAT scans and sonograms reveal ovarian masses with ascites, suspicious for malignancy. Patient has not had fevers. She has had no nausea, vomiting, diarrhea, or constipation or bleeding per rectum. The patient is not , has 3 children. Had her first child at age 18, took control pills for about 8 years during her 20s. Did breastfeed. FAMILY HISTORY: Negative for malignancy. Mother with hypertension and diabetes. Father with hypertension. PAST MEDICAL HISTORY: Includes Ambrosio's palsy in 2015. Patient lives with her parents. 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 REVIEW OF SYSTEMS: No headaches, diplopia, epistaxis, dysphagia, chest pain, shortness of breath. Mammogram in May unremarkable. Abdominal pain as aforementioned. No dysuria, hematuria, vaginal bleeding as aforementioned, no back or bone pain. PHYSICAL EXAMINATION: Vital signs: Blood pressure 112/63, pulse 84, respiratory 18, afebrile. HEENT: ZEYNEP, EOM intact. There is mild left ptosis. There is a left facial no cervical supraclavicular nodes. Lungs: Diminished breath sounds at the bases. Cardiac: Regular rhythm. Breasts: No dominant masses. Abdomen: Somewhat distended, tenderness especially right lower quadrant. Extremities: No significant edema. LABORATORY: WBC 7.2, hematocrit 40, platelets 265, with 84 polycytes, 10 lymphocytes. INR 1.23. Chemistries: 139 sodium, potassium 3.9, chloride 104, CO2 of 27, BUN 13, creatinine 0.8, calcium 8.8, magnesium 2. AST 60, ALT 26, alkaline phosphatase 62. negative. Lipase 281, which is normal. CT of the abdomen and pelvis, tiny 3-mm pulmonary nodule in the left lower lobe. Bilateral pelvic masses likely represented ovarian masses, suspicious for malignancy, moderate ascites, no evidence of small bowel obstruction on sonogram, bilateral adnexal ovarian masses with moderate amount of fluid ascites in the pelvis. IMPRESSION: This is an unfortunate 41-year-old, had a high risk colon cancer in 2016, treated with sigmoid resection. It was a T4 lesion invading the serosa N2b 10 positive nodes, and had lymphovascular invasion. The patient was treated with chemotherapy for 12 cycles with FOLFOX and developed some degree of neuropathy. 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 Currently with bilateral ovarian masses and ascites. The patient will need a HAND DEVELOPER examination. She can have CA125 and CEA. She needs a chest CT. She likely will need paracentesis and thereafter she may well need surgical exploration. Will follow. I did speak with Dr. Tian Figueroa, patient's treating oncologist, to obtain this information. TYLOR CHARLTON M.D. RONEY/[id number]
[2017-02-18] MEDS ORDERED: METRONIDAZOLE PREMIXED IVPB 50 ML IVPB SCH (18:00)
[2017-02-18] MEDS ORDERED: DEXTROSE 5%-WATER 100 ML IVPB ONE (18:11)
[2017-02-18] MEDS: CEFTRIAXONE 2 GM in DEXTROSE 5%-WATER 100 ML IVPB SCH (18:30)
[2017-02-18] MEDS: METRONIDAZOLE 500 MG PREMIXED 100 ML IVPB SCH (19:25)
[2017-02-18 19:44] VITALS: BMI 27.6
[2017-02-19] MEDS: morphine CARPU-JECT 2 MG/1 ML DISP.SYRIN IVPUSH PRN ×3 (00:41→17:12)
[2017-02-19] MEDS: METRONIDAZOLE 500 MG PREMIXED 100 ML IVPB SCH ×2 (01:35→09:49)
--- NOTE | 2017-02-19 09:40 | CON.OBG ---
Consult Consult Specialty:: POKER SUPERVISOR Referred by:: Ernestina Kim MD Reason for Consultation:: Ovarian mass / Ascites - History of Present Illness Chief Complaint: Generalized abdominal pain History of Present Illness: 41 yo Para 3, with h/o Adenocarcinoma of the colon, presents c/o generalized abdominal pain. She had several imaging studies showing evidence of ovarian masses associated with ascites. - History Source History Provided By: Patient Limitations to Obtaining History: No Limitations - Past Medical History COUNTER MOLDER: Yes: Other (bells palsy). No: Alzheimer's, CVA, Dementia, Migraine, Multiple Sclerosis, Peripheral Neuropathy, Parkinson's, Seizure, Syncope, TIA, Vertigo ...LMP: 01/28/15 ...: No - Past Surgical History Past Surgical History: Yes: None. No: AAA Repair, AICD, Amputation, Appendectomy, Arthrosocopy, AV Fistula/Graft, Bariatric Surgery, Breast Biopsy, Bypass, CABG, Carotid Endarterectomy, Cataract Removal, Cholecystectomy, Colectomy, Colonoscopy, Colostomy, Craniotomy, , Cystectomy, Hernia Repair, Hysterectomy, Ileal Conduit, Ileosotomy, Joint Replacement, Kidney Transplant, Laminectomy, Liver Transplant, Mastectomy, Nephrectomy, Oopherectomy , Orchiectomy, Permanent Pacemaker, Prostatectomy, Splenectomy, Stent, Thoracotomy, TURP, Tonsillectomy, Tubal Ligation, Upper Endoscopy, Valve Replacement, Vasectomy, Vein Stripping/Ligation - Alcohol/Substance Use Hx Alcohol Use: No History of Substance Use: reports: None. denies: Cocaine, Heroin, Marijuana, Prescription, Tranquilizers - Smoking History Smoking history: Never smoked Have you smoked in the past 12 months: No - Social History ADL: Independent History of Recent Travel: No Home Medications - Allergies Allergies/Adverse Reactions: Allergies Allergy/AdvReac Type Severity Reaction Status Date / Time No Known Allergies Allergy Verified 02/18/17 04:20 - Home Medications Home Medications: Ambulatory Orders NK [No Known Home Medication] 02/01/17 Review of Systems - Review of Systems HENT: reports: No Symptoms Neck: reports: No Symptoms Cardiovascular: reports: No Symptoms Respiratory: reports: No Symptoms Gastrointestinal: reports: Abdominal Pain, Bloating. denies: Constipation, Diarrhea, Vomiting Genitourinary: denies: Vaginal Bleeding Musculoskeletal: reports: No Symptoms Neurological: reports: No Symptoms Psychiatric: reports: No Symptoms Pain Intensity: 5 Physical Exam-POLICE CHIEF Vital Signs: Vital Signs Temperature 98.3 F 02/19/17 06:00 Pulse Rate 92 H 02/19/17 06:00 Respiratory Rate 20 02/19/17 06:00 Blood Pressure 119/71 02/19/17 06:00 O2 Sat by Pulse Oximetry (%) 92 L 02/18/17 10:15 Constitutional: Yes: Well Nourished Eyes: Yes: Conjunctiva Clear HENT: Yes: Atraumatic Neck: Yes: Supple Cardiovascular: Yes: Regular Rate and Rhythm Respiratory: Yes: Regular, CTA Bilaterally Gastrointestinal: Yes: Soft, Tenderness. No: Vomiting External Genitalia: Yes: Normal Vaginal Exam: Yes: Normal Cervix: Yes: Normal Neurological: Yes: Alert, Oriented ...Motor Strength: WNL Psychiatric: Yes: Alert, Oriented Assessment/Plan Abdominal pain Ovarian mass Ascites Personal h/o Adenocarcinoma of the colon R/O Lyon syndrome R/O Secondary Ovarian cancer F/U CEA / CA125 F/U with POLICE CHIEF Oncologist at [facility] as out patient
[2017-02-19] MEDS ORDERED: DEXTROSE 5%-WATER 100 ML IVPB ONE (09:46)
[2017-02-19] MEDS: ENOXAPARIN NA (PORCINE) 40 MG/0.4 ML DISP.SYRIN SQ SCH (09:48)
[2017-02-19] MEDS: CEFTRIAXONE 2 GM in DEXTROSE 5%-WATER 100 ML IVPB SCH (09:48)
[2017-02-19] MEDS: SODIUM CHLORIDE 1,000 ML IV SCH ×2 (09:48→20:00)
--- NOTE | 2017-02-19 11:00 | PN ---
Progress Note (short form) - Note Progress Note: ID Full note dictated Abd pain in the absence of fever Laboratory Tests 02/18/17 02/18/17 04:35 04:35 Hgb 13.6 Plt Count 265 Total Bilirubin 0.4 D AST 60 H D ALT 26 Alkaline Phosphatase 62 er chills Selected Entries 02/18/17 02/19/17 10:15 02:01 Temperature 98.2 F 98.6 F Pulse Rate 84 Respiratory 20 Rate Blood Pressure 115/67 Abd Mild distended and tenderness low abd no rebound Assessment Ruling out spontaneous peritionitis vs malignant ascites Only criteria for SBP at this time is abd pain but we have no fluid Other criteria fever altered mental status and WBCs over 250 Plan Cefotaxime 2 grs q 8 h and paracentesis Radha ZAPATA Problem List - Problems (1) Abdominal pain Code(s): R10.9 - UNSPECIFIED ABDOMINAL PAIN Qualifiers: Abdominal location: unspecified location Qualified Code(s): R10.9 - Unspecified abdominal pain (2) Ascites Code(s): R18.8 - OTHER ASCITES Qualifiers: Ascites type: other type Qualified Code(s): R18.8 - Other ascites (3) Ovarian mass Code(s): N83.9 - NONINFLAMMATORY DISORD OF OVARY, FALLOP & BROAD LIGMT, UNSP (4) Spontaneous bacterial peritonitis Code(s): K65.2 - SPONTANEOUS BACTERIAL PERITONITIS
--- NOTE | 2017-02-19 11:57 | CONS ---
DATE OF CONSULTATION: DATE OF DICTATION: 02/19/2017 HISTORY OF PRESENT ILLNESS: This is a 41-year-old female who I am asked to see for evaluation of possible spontaneous bacterial peritonitis. She is known to have adenocarcinoma of the colon and has been followed by Dr. Tian Figueroa. She is status post sigmoid resection and the tumor involves the serosa with positive lymph nodes, but no obvious metastasis. According to Dr. Calhoun consultation, she has received 12 cycles of chemotherapy with Folfox and completed her chemotherapy 1 year ago. She recently saw a respiratory technician because of vaginal spotting within the last 2 months and had an unremarkable colonoscopy on February 02. Recent CT scans and sonograms have revealed ovarian masses with ascites suspicious for malignancy. The patient comes now complaining of increasing abdominal pain. She had an abdominal CT scan done through the emergency room which showed bilateral pelvic masses thought possibly of ovarian origin along with a moderate amount of ascites in the abdomen and pelvis, and no evidence of bowel obstruction. The possibility of SBP was raised by Dr. Mcdonald, and the patient was empirically treated by her primary doctor with ceftriaxone and metronidazole. The patient denies any fever, chills. She notes abdominal pain. No urinary complaints. She is alert and oriented at the time of my evaluation. PAST MEDICAL HISTORY: As noted above. MEDICATIONS: Ceftriaxone, metronidazole. ALLERGIES: None known. SOCIAL HISTORY: She is an immigrant from [facility], living here many years, a nonsmoker. No history of substance abuse. FAMILY HISTORY: Reviewed, noncontributory. REVIEW OF SYSTEMS: Respiratory: No cough or shortness of breath. Cardiac: No chest pain, palpitations, murmur. Gastrointestinal: Abdominal pain. No nausea, vomiting, diarrhea, blood per rectum Genitourinary: No dysuria, hematuria, or urinary frequency. PHYSICAL EXAMINATION: General She appeared alert, in no distress. Vital signs: Temperature was 98.6, blood pressure 115/67, respirations 20, pulse 84. Neck: Supple. Lungs: Clear to percussion and auscultation. Heart: S1, S2, regular rhythm, without audible murmur. Abdomen: Mildly distended, soft, with lower abdominal tenderness. No guarding or rebound. No palpable mass appreciated. Extremities: No clubbing, cyanosis, or edema. LABORATORY DATA: The white count is 7.2, hemoglobin 13.6, platelets 265. Chemistry within normal limits including liver enzymes. Urinalysis pending. Two sets of blood cultures thus far no growth. Urine culture pending. ASSESSMENT: This is a 41-year-old female with history of colon cancer status post chemotherapy with increasing abdominal pain, ascites, and ovarian masses. She has been seen by obstetric respiratory technician, Dr. Emilie Alvarez, raising the possibility of a secondary ovarian cancer. She has ascites, and the possibility of spontaneous bacterial peritonitis was raised. At this point, criteria for spontaneous bacterial peritonitis would include only abdominal pain. She has no fever and has not yet had a paracentesis to know if she would have a white blood cell count greater than 250 cells. Her mental status is normal. It may be a day or two before we are able to actually get the paracentesis as most likely this will need to be done through interventional radiology. For the time being, pending blood cultures, will empirically treat it with cefotaxime 2 g IV every 8 hours. The case was discussed with Dr. Kim. PRASHANT ROSAS M.D. [id number]
--- NOTE | 2017-02-19 12:45 | PN ---
Progress Note (short form) - Note Progress Note: Progress Note: Seen in follow up. Abdominal pain/discomfort controlled. Feeling well, no complaints. Meds reviewed. Current Medications Generic Name Dose Route Start Last Admin Trade Name Mirna PRN Reason Stop Dose Admin Enoxaparin Sodium 40 mg 02/18/17 10:00 02/19/17 09:48 Lovenox - SQ 40 mg DAILY VANESSA Administration Sodium Chloride 1,000 mls @ 125 mls/hr 02/18/17 09:15 02/19/17 09:48 Normal Saline - IV 125 mls/hr ASDIR VANESSA Administration Ceftriaxone Sodium 2 gm/ 100 mls @ 200 mls/hr 02/20/17 10:00 Dextrose IVPB DAILY VANESSA Morphine Sulfate 4 mg 02/18/17 09:07 02/19/17 09:49 Morphine Injection - IVPUSH 4 mg Q4H PRN Administration PAIN Ondansetron HCl 4 mg 02/18/17 09:07 Zofran Injection IVPB Q6H PRN NAUSEA On exam: Last Vital Signs Temp Pulse Resp BP Pulse Ox 98.4 F 91 H 20 119/78 92 L 02/19/17 09:53 02/19/17 09:53 02/19/17 09:53 02/19/17 09:53 02/18/17 10:15 General: Supine in bed, looks well. Extremities: No pallor, no icterus. Chest:good AE bilaterally, clear Abdomen: Soft, no organomegaly, distended slightly. Neuro: Alert, oriented, non-focal. CVS: Normal sinus rhythm, S1, S2, no gallop or murmur. CBC, BMP 02/18/17 04:35 02/18/17 04:35 Assessment. Newly diagnosed bilateral ovarian masses with ascites - ? new ovarian neoplasm vs recurrence prior ca colon vs other. CEA/CA125 pending Requires definitive diagnostic procedure - [facility] STENCILER-[facility] has seen her. Paracentesis and fluid cytology vs laparoscopy. Will follow with you.
--- NOTE | 2017-02-19 14:40 | PN ---
Progress Note (short form) - Note Progress Note: Patient is comfortable now, no acute distress, pain is improving. No shortness of breath. On clear liquid diet continue for now. Temperature 98.4 F 02/19/17 09:53 Pulse Rate 91 H 02/19/17 09:53 Respiratory Rate 20 02/19/17 09:53 Blood Pressure 119/78 02/19/17 09:53 O2 Sat by Pulse Oximetry (%) 96 02/19/17 09:00 GENERAL: AAO x 3, in pain but no acute cardiopulmonary distress EYES: Pupils equal, round and reactive to light, extraocular movements intact, sclera anicteric, conjunctiva clear. EARS, NOSE, THROAT: oropharynx clear without exudates. Moist mucous membranes. LUNGS: CTAB HEART:RRR, normal S1 and S2 without murmur, rub or gallop. ABDOMEN: mild tenderness with moderate distention, normoactive bowel sounds, dull, no guarding, no rebound, no masses. EXTREMITIES: 2+ pulses, warm, well-perfused. No calf tenderness. No peripheral edema. SKIN: Warm, dry, normal turgor, no rashes or lesions noted, normal capillary refill. CBCD WBC 7.2 K/mm3 (4.0-10.0) D 02/18/17 04:35 RBC 4.24 M/mm3 (3.60-5.2) 02/18/17 04:35 Hgb 13.6 GM/dL (10.7-15.3) 02/18/17 04:35 Hct 40.1 % (32.4-45.2) 02/18/17 04:35 MCV 94.5 fl (80-96) 02/18/17 04:35 MCHC 33.9 g/dl (32.0-36.0) 02/18/17 04:35 RDW 13.4 % (11.6-15.6) 02/18/17 04:35 Plt Count 265 K/MM3 (134-434) 02/18/17 04:35 MPV 9.1 fl (7.5-11.1) 02/18/17 04:35 CMP Sodium 139 mmol/L (136-145) 02/18/17 04:35 Potassium 3.9 mmol/L (3.5-5.1) 02/18/17 04:35 Chloride 104 mmol/L (98-107) 02/18/17 04:35 Carbon Dioxide 27 mmol/L (21-32) 02/18/17 04:35 Anion Gap 8 (8-16) 02/18/17 04:35 BUN 13 mg/dL (7-18) D 02/18/17 04:35 Creatinine 0.8 mg/dL (0.55-1.02) 02/18/17 04:35 Creat Clearance w eGFR > 60 (>60) 02/18/17 04:35 Random Glucose 116 mg/dL (74-106) H D 02/18/17 04:35 Calcium 8.8 mg/dL (8.5-10.1) 02/18/17 04:35 Total Bilirubin 0.4 mg/dL (0.2-1.0) D 02/18/17 04:35 AST 60 U/L (15-37) H D 02/18/17 04:35 ALT 26 U/L (12-78) 02/18/17 04:35 Alkaline Phosphatase 62 U/L (45-117) 02/18/17 04:35 Total Protein 7.3 g/dl (6.4-8.2) 02/18/17 04:35 Albumin 3.8 g/dl (3.4-5.0) 02/18/17 04:35 Current Medications Generic Name Dose Route Start Last Admin Trade Name Freq PRN Reason Stop Dose Admin Enoxaparin Sodium 40 mg 02/18/17 10:00 02/19/17 09:48 Lovenox - SQ 40 mg DAILY VANESSA Administration Sodium Chloride 1,000 mls @ 125 mls/hr 02/18/17 09:15 02/19/17 09:48 Normal Saline - IV 125 mls/hr ASDIR VANESSA Administration Ceftriaxone Sodium 2 gm/ 100 mls @ 200 mls/hr 02/20/17 10:00 Dextrose IVPB DAILY VANESSA Morphine Sulfate 4 mg 02/18/17 09:07 02/19/17 09:49 Morphine Injection - IVPUSH 4 mg Q4H PRN Administration PAIN Ondansetron HCl 4 mg 02/18/17 09:07 Zofran Injection IVPB Q6H PRN NAUSEA Home Medications Medication Instructions Recorded NK [No Known Home Medication] 02/01/17 Transvaginal U/S on 02/18: b/l ovarian masses with ascites CT abd on 02/18: b/l ovarian masses suspicious for malignancy with moderate amount of ascites ASSESSMENT AND PLAN: Patient is a 41 yo F h/o colon CA s/p resection admitted to med-surg for malignancy workup. # Bilateral ovarian masses, with hx of colon cancer diagnosed a year ago ( ) as per patient was treated with chemo, no family Hx of any cancer out of 9 children. 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 High risk malignancy followed by 12 cycles of FOLFOX chemotherpy ( 5FU, Leucovorum, oxaliplatin). Treatment completed less than 1 year ago. Had loss of MLH-1 ,but no additional testing for Microsatellite instability performed. Presents now with 2 months of vaginal bleeding, ascites, and bilateral ovarian masses. Reportedly negative colonoscopy on February 02. Oredered CEA, Ca-125, CULINARY SPECIALIST, ID, Paracentesis by IR High risk ca makes metastatic disease worrisome, and possible Lyon syndrome makes second ovarian primary a consideration. #Colon CA s/p chemotherapy s/p colonoscopy recently #Anemia most likely due to colon Cancer # abdominal pain with ascites can't r/o SBP since patient is a high risk started on IV Rocephin/Flagyl ,Consulted ID, Panculture ordered. DVT Prophylaxis: lovenox 40mg daily Spoke with Dr. Tian Figueroa , patients treating oncologist. Visit type - Emergency Visit Emergency Visit: Yes ED Registration Date: 02/18/17 Care time: The patient presented to the Emergency Department on the above date and was hospitalized for further evaluation of their emergent condition. - New Patient This patient is new to me today: No - Critical Care Critical Care patient: No
[2017-02-19] MEDS ORDERED: CEFOTAXIME SODIUM 2,000 MG in DEXTROSE 5%-WATER - 50 ML IVPB SCH (18:00)
[2017-02-20] MEDS ORDERED: morphine CARPU-JECT 4 MG/1 ML DISP.SYRIN IVPUSH ONE (00:22)
[2017-02-20] MEDS: SODIUM CHLORIDE 1,000 ML IV SCH ×3 (03:25→13:34)
[2017-02-20] MEDS: morphine CARPU-JECT 4 MG/1 ML DISP.SYRIN IVPUSH PRN ×2 (08:42→16:51)
[2017-02-20] MEDS ORDERED: DEXTROSE 5%-WATER 100 ML IVPB ONE (09:26)
[2017-02-20] MEDS: ENOXAPARIN NA (PORCINE) 40 MG/0.4 ML DISP.SYRIN SQ SCH (09:28)
[2017-02-20] MEDS: CEFTRIAXONE 2 GM in DEXTROSE 5%-WATER 100 ML IVPB SCH (09:29)
[2017-02-20 09:36] LABS: URINE APPEARANCE CLEAR; URINE BILIRUBIN NEGATIVE (NEGATIVE); URINE BLOOD NEGATIVE (NEGATIVE); URINE COLOR LTYELLOW; URINE GLUCOSE (UA) NEGATIVE (NEGATIVE); URINE KETONE 2+ (NEGATIVE); URINE LEUK ESTERASE NEGATIVE (NEGATIVE); URINE NITRITE NEGATIVE (NEGATIVE); URINE PROTEIN NEGATIVE (NEGATIVE); URINE UROBILINOGEN NEGATIVE mg/dL (0.2-1.0)
--- NOTE | 2017-02-20 13:16 | PN ---
Progress Note (short form) - Note Progress Note: Progress Note: Seen in follow up. Abdominal pain/discomfort controlled. Feeling well, no complaints. Meds reviewed. Current Medications Generic Name Dose Route Start Last Admin Trade Name Freq PRN Reason Stop Dose Admin Enoxaparin Sodium 40 mg 02/18/17 10:00 02/20/17 09:28 Lovenox - SQ 40 mg DAILY VANESSA Administration Sodium Chloride 1,000 mls @ 125 mls/hr 02/18/17 09:15 02/20/17 09:28 Normal Saline - IV Not Given ASDIR VANESSA Ceftriaxone Sodium 2 gm/ 100 mls @ 200 mls/hr 02/20/17 10:00 02/20/17 09:29 Dextrose IVPB 200 mls/hr DAILY VANESSA Administration Morphine Sulfate 4 mg 02/20/17 08:36 02/20/17 08:42 Morphine Injection - IVPUSH 4 mg Q4H PRN Administration PAIN Ondansetron HCl 4 mg 02/18/17 09:07 Zofran Injection IVPB Q6H PRN NAUSEA On exam: Last Vital Signs Temp Pulse Resp BP Pulse Ox 98.8 F 88 20 126/75 96 02/20/17 10:00 02/20/17 10:00 02/20/17 10:00 02/20/17 10:00 02/20/17 09:00 General: Supine in bed, looks well. Extremities: No pallor, no icterus. Chest:good AE bilaterally, clear Abdomen: Soft, no organomegaly, distended slightly. Neuro: Alert, oriented, non-focal. CVS: Normal sinus rhythm, S1, S2, no gallop or murmur. CBC, BMP 02/18/17 04:35 02/18/17 04:35 Assessment. Newly diagnosed bilateral ovarian masses with ascites - ? new ovarian neoplasm vs recurrence prior ca colon vs other. CEA/CA125 pending Requires definitive diagnostic procedure - SUPERVISOR [facility]OND-[facility] has seen her. Paracentesis and fluid cytology vs laparoscopy. Will follow with you.
--- NOTE | 2017-02-20 17:18 | PN ---
Teaching Attending Note Name of Resident: Natividad Lee ATTENDING PHYSICIAN STATEMENT I saw and evaluated the patient. I reviewed the resident's note and discussed the case with the resident. I agree with the resident's findings and plan as documented. SUBJECTIVE: Patient is feeling better, will start her on clear liquid diet. OBJECTIVE: Vital Signs Temperature 98.4 F 02/20/17 13:57 Pulse Rate 94 H 02/20/17 13:57 Respiratory Rate 17 02/20/17 13:57 Blood Pressure 137/83 02/20/17 13:57 O2 Sat by Pulse Oximetry (%) 96 02/20/17 09:00 GENERAL: AAO x 3, in pain but no acute cardiopulmonary distress EYES: Pupils equal, round and reactive to light, extraocular movements intact, sclera anicteric, conjunctiva clear. EARS, NOSE, THROAT: oropharynx clear without exudates. Moist mucous membranes. LUNGS: CTAB HEART:RRR, normal S1 and S2 without murmur, rub or gallop. ABDOMEN: diffusely tender and moderate distention, normoactive bowel sounds, no guarding, no rebound, no masses. EXTREMITIES: 2+ pulses, warm, well-perfused. No calf tenderness. No peripheral edema. SKIN: Warm, dry, normal turgor, no rashes or lesions noted, normal capillary refill. CBCD WBC 7.2 K/mm3 (4.0-10.0) D 02/18/17 04:35 RBC 4.24 M/mm3 (3.60-5.2) 02/18/17 04:35 Hgb 13.6 GM/dL (10.7-15.3) 02/18/17 04:35 Hct 40.1 % (32.4-45.2) 02/18/17 04:35 MCV 94.5 fl (80-96) 02/18/17 04:35 MCHC 33.9 g/dl (32.0-36.0) 02/18/17 04:35 RDW 13.4 % (11.6-15.6) 02/18/17 04:35 Plt Count 265 K/MM3 (134-434) 02/18/17 04:35 MPV 9.1 fl (7.5-11.1) 02/18/17 04:35 CMP Sodium 139 mmol/L (136-145) 02/18/17 04:35 Potassium 3.9 mmol/L (3.5-5.1) 02/18/17 04:35 Chloride 104 mmol/L (98-107) 02/18/17 04:35 Carbon Dioxide 27 mmol/L (21-32) 02/18/17 04:35 Anion Gap 8 (8-16) 02/18/17 04:35 BUN 13 mg/dL (7-18) D 02/18/17 04:35 Creatinine 0.8 mg/dL (0.55-1.02) 02/18/17 04:35 Creat Clearance w eGFR > 60 (>60) 02/18/17 04:35 Random Glucose 116 mg/dL (74-106) H D 02/18/17 04:35 Calcium 8.8 mg/dL (8.5-10.1) 02/18/17 04:35 Total Bilirubin 0.4 mg/dL (0.2-1.0) D 02/18/17 04:35 AST 60 U/L (15-37) H D 02/18/17 04:35 ALT 26 U/L (12-78) 02/18/17 04:35 Alkaline Phosphatase 62 U/L (45-117) 02/18/17 04:35 Total Protein 7.3 g/dl (6.4-8.2) 02/18/17 04:35 Albumin 3.8 g/dl (3.4-5.0) 02/18/17 04:35 Current Medications Generic Name Dose Route Start Last Admin Trade Name Freq PRN Reason Stop Dose Admin Enoxaparin Sodium 40 mg 02/18/17 10:00 02/20/17 09:28 Lovenox - SQ 40 mg DAILY VANESSA Administration Sodium Chloride 1,000 mls @ 125 mls/hr 02/18/17 09:15 02/20/17 13:34 Normal Saline - IV 125 mls/hr ASDIR VANESSA Administration Ceftriaxone Sodium 2 gm/ 100 mls @ 200 mls/hr 02/20/17 10:00 02/20/17 09:29 Dextrose IVPB 200 mls/hr DAILY VANESSA Administration Morphine Sulfate 4 mg 02/20/17 08:36 02/20/17 16:51 Morphine Injection - IVPUSH 4 mg Q4H PRN Administration PAIN Ondansetron HCl 4 mg 02/18/17 09:07 Zofran Injection IVPB Q6H PRN NAUSEA Home Medications Medication Instructions Recorded NK [No Known Home Medication] 02/01/17 Microbiology 02/20/17 05:30 Urine - Urine Clean Catch Urine Culture - Final NO GROWTH OBTAINED 02/18/17 18:00 Blood - Peripheral Venous Blood Culture - Preliminary NO GROWTH OBTAINED AFTER 48 HOURS, INCUBATION TO CONTINUE FOR 3 DAYS. 02/18/17 18:00 Blood - Peripheral Venous Blood Culture - Preliminary NO GROWTH OBTAINED AFTER 48 HOURS, INCUBATION TO CONTINUE FOR 3 DAYS. 02/18/17 18:30 Urine - Urine Clean Catch Urine Culture - Final NO GROWTH OBTAINED Transvaginal U/S on 02/18: b/l ovarian masses with ascites CT abd on 02/18: b/l ovarian masses suspicious for malignancy with moderate amount of ascites ASSESSMENT AND PLAN: Patient is a 41 yo F h/o colon CA s/p resection admitted to med-surg for malignancy workup. # abdominal pain with ascites on IV antibiotic for possible SBP, ID consulted # Bilateral ovarian masses, with hx of colon cancer diagnosed a year ago ( ) as per patient was treated with chemo, no family Hx of any cancer out of 9 children. onc.mobile electronics installer consult #Colon CA s/p chemotherapy s/p colonoscopy recently #Anemia most likely due to colon Cancer DVT Prophylaxis: lovenox 40mg daily
--- NOTE | 2017-02-20 19:38 | PN ---
Physical Exam: SUBJECTIVE: Patient seen and examined. Says she feels better today. She denies abdominal pain at rest. She says her abdomen hurts only when palpated. OBJECTIVE: Vital Signs Period Temp Pulse Resp BP Sys/Herrera Pulse Ox Last 24 Hr 97.6 F-98.8 F 88-103 17-20 120-138/63-83 96-96 GENERAL: The patient is awake, alert, and fully oriented, in no acute distress. HEAD: Normal with no signs of trauma. EYES: PERRL, extraocular movements intact, sclera anicteric, conjunctiva clear. No ptosis. NECK: supple. LUNGS: Breath sounds equal, clear to auscultation bilaterally, no wheezes, no crackles, no accessory muscle use. HEART: Regular rate and rhythm, S1, S2 without murmur, rub or gallop. ABDOMEN: Soft, tender to palpation throughout, moderately distended, normoactive bowel sounds, EXTREMITIES: 2+ pulses, warm, well-perfused, no edema. PSYCH: Normal mood, normal affect. SKIN: Warm, dry, normal turgor, no rashes or lesions noted Laboratory Results - last 24 hr 02/20/17 05:30 Urine Color Ltyellow Urine Appearance Clear Urine pH 6.0 Ur Specific [place] 1.020 Urine Protein Negative Urine Glucose (UA) Negative Urine Ketones 2+ H Urine Blood Negative Urine Nitrite Negative Urine Bilirubin Negative Urine Urobilinogen Negative Ur Leukocyte Esterase Negative Active Medications Generic Name Dose Route Start Last Admin Trade Name Freq PRN Reason Stop Dose Admin Enoxaparin Sodium 40 mg 02/18/17 10:00 02/20/17 09:28 Lovenox - SQ 40 mg DAILY VANESSA Administration Sodium Chloride 1,000 mls @ 125 mls/hr 02/18/17 09:15 02/20/17 13:34 Normal Saline - IV 125 mls/hr ASDIR VANESSA Administration Ceftriaxone Sodium 2 gm/ 100 mls @ 200 mls/hr 02/20/17 10:00 02/20/17 09:29 Dextrose IVPB 200 mls/hr DAILY VANESSA Administration Morphine Sulfate 4 mg 02/20/17 08:36 02/20/17 16:51 Morphine Injection - IVPUSH 4 mg Q4H PRN Administration PAIN Ondansetron HCl 4 mg 02/18/17 09:07 Zofran Injection IVPB Q6H PRN NAUSEA Transvaginal U/S on 02/18: b/l ovarian masses with ascites CT abd on 02/18: b/l ovarian masses suspicious for malignancy with moderate amount of ascites ASSESSMENT/PLAN: Patient is a 41 yo F h/o colon CA (Jul 2015) s/p resection presented to the ED with severe diffuse abdominal pain and vaginal bleeding and admitted for malignancy workup. #Bilateral ovarian masses -History of Colon cancer (tx with chemo) - Requires definitive diagnostic procedure. Paracentesis and fluid cytology vs laparoscopy per HEME/ONC -CEA/CA125 pending -CANOPY INSPECTOR-ONC consulted #Hx of Colon CA (Jul 2015) s/p chemotherapy -s/p resection -CEA pending #Anemia -likely due to cancer -will monitor #Abdominal Pain w/Ascites -R/O SBP vs Malignant Ascites per ID -ID consulted -cultures negative -Continue Rocephin as per ID #Nausea -Zofran 4mg PRN Q6 FEN: NS 125 cc/hour Electrolytes WNL Full liquid diet PPX: Lovenox 40mg SQ daily No Gi prophylaxis Visit type - Emergency Visit Emergency Visit: Yes ED Registration Date: 02/18/17 Care time: The patient presented to the Emergency Department on the above date and was hospitalized for further evaluation of their emergent condition. - New Patient This patient is new to me today: Yes Date on this admission: 02/20/17 - Critical Care Critical Care patient: No
[2017-02-21] MEDS: morphine CARPU-JECT 4 MG/1 ML DISP.SYRIN IVPUSH PRN (05:04)
[2017-02-21] MEDS ORDERED: DEXTROSE 5%-WATER 100 ML IVPB ONE (09:39)
[2017-02-21] MEDS: CEFTRIAXONE 2 GM in DEXTROSE 5%-WATER 100 ML IVPB SCH (09:41)
[2017-02-21] MEDS: SODIUM CHLORIDE 1,000 ML IV SCH ×2 (09:42→19:11)
[2017-02-21] MEDS: ENOXAPARIN NA (PORCINE) 40 MG/0.4 ML DISP.SYRIN SQ SCH (09:42)
--- NOTE | 2017-02-21 09:58 | PN ---
Progress Note (short form) - Note Progress Note: minimal abdominal pain no fevers tolerating liquids no vomiting Vital Signs Period Temp Pulse Resp BP Sys/Herrera Pulse Ox Last 24 Hr 98.3 F-99.5 F 88-94 17-20 122-137/75-89 95 cor-rrr llungs clear abd soft, mild lower quadrant pain on palpation ext no edema CBC, BMP 02/18/17 04:35 02/18/17 04:35 Microbiology 02/18/17 18:00 Blood - Peripheral Venous Blood Culture - Preliminary NO GROWTH OBTAINED AFTER 48 HOURS, INCUBATION TO CONTINUE FOR 3 DAYS. 02/18/17 18:00 Blood - Peripheral Venous Blood Culture - Preliminary NO GROWTH OBTAINED AFTER 48 HOURS, INCUBATION TO CONTINUE FOR 3 DAYS. 02/18/17 18:30 Urine - Urine Clean Catch Urine Culture - Final NO GROWTH OBTAINED Current Medications Enoxaparin Sodium (Lovenox -) 40 mg SQ DAILY VANESSA Last Admin: 02/21/17 09:42 Dose: 40 mg Sodium Chloride (Normal Saline -) 1,000 mls @ 125 mls/hr IV ASDIR VANESSA Last Admin: 02/21/17 09:42 Dose: 125 mls/hr Ceftriaxone Sodium 2 gm/ (Dextrose) 100 mls @ 200 mls/hr IVPB DAILY VANESSA Last Admin: 02/21/17 09:41 Dose: 200 mls/hr Morphine Sulfate (Morphine Injection -) 4 mg IVPUSH Q4H PRN PRN Reason: PAIN Last Admin: 02/21/17 05:04 Dose: 4 mg Ondansetron HCl (Zofran Injection) 4 mg IVPB Q6H PRN PRN Reason: NAUSEA a/p remains on antibiotics for possible SBP ?malignant ascites- ?ovarian ca versus recurrent colon ca oncology f/u continue rocephin for now
--- NOTE | 2017-02-21 15:51 | PN ---
Progress Note (short form) - Note Progress Note: Tolerating liquid diet well, No acute distress, denies having any pain unless she says you press hard. Temperature 98.4 F 02/21/17 14:35 Pulse Rate 87 02/21/17 14:35 Respiratory Rate 18 02/21/17 14:35 Blood Pressure 124/79 02/21/17 14:35 O2 Sat by Pulse Oximetry (%) 97 02/21/17 10:00 GENERAL: AAO x 3, in pain but no acute cardiopulmonary distress EYES: Pupils equal, round and reactive to light, extraocular movements intact, sclera anicteric, conjunctiva clear. EARS, NOSE, THROAT: oropharynx clear without exudates. Moist mucous membranes. LUNGS: CTAB HEART:RRR, normal S1 and S2 without murmur, rub or gallop. ABDOMEN: diffuse mild tenderness with mild distention, normoactive bowel sounds , no guarding, no rebound, no masses. EXTREMITIES: 2+ pulses, warm, well-perfused. No calf tenderness. No peripheral edema. SKIN: Warm, dry, normal turgor, no rashes or lesions noted, normal capillary refill. CBCD WBC 7.2 K/mm3 (4.0-10.0) D 02/18/17 04:35 RBC 4.24 M/mm3 (3.60-5.2) 02/18/17 04:35 Hgb 13.6 GM/dL (10.7-15.3) 02/18/17 04:35 Hct 40.1 % (32.4-45.2) 02/18/17 04:35 MCV 94.5 fl (80-96) 02/18/17 04:35 MCHC 33.9 g/dl (32.0-36.0) 02/18/17 04:35 RDW 13.4 % (11.6-15.6) 02/18/17 04:35 Plt Count 265 K/MM3 (134-434) 02/18/17 04:35 MPV 9.1 fl (7.5-11.1) 02/18/17 04:35 CMP Sodium 139 mmol/L (136-145) 02/18/17 04:35 Potassium 3.9 mmol/L (3.5-5.1) 02/18/17 04:35 Chloride 104 mmol/L (98-107) 02/18/17 04:35 Carbon Dioxide 27 mmol/L (21-32) 02/18/17 04:35 Anion Gap 8 (8-16) 02/18/17 04:35 BUN 13 mg/dL (7-18) D 02/18/17 04:35 Creatinine 0.8 mg/dL (0.55-1.02) 02/18/17 04:35 Creat Clearance w eGFR > 60 (>60) 02/18/17 04:35 Random Glucose 116 mg/dL (74-106) H D 02/18/17 04:35 Calcium 8.8 mg/dL (8.5-10.1) 02/18/17 04:35 Total Bilirubin 0.4 mg/dL (0.2-1.0) D 02/18/17 04:35 AST 60 U/L (15-37) H D 02/18/17 04:35 ALT 26 U/L (12-78) 02/18/17 04:35 Alkaline Phosphatase 62 U/L (45-117) 02/18/17 04:35 Total Protein 7.3 g/dl (6.4-8.2) 02/18/17 04:35 Albumin 3.8 g/dl (3.4-5.0) 02/18/17 04:35 Current Medications Generic Name Dose Route Start Last Admin Trade Name Freq PRN Reason Stop Dose Admin Enoxaparin Sodium 40 mg 02/18/17 10:00 02/21/17 09:42 Lovenox - SQ 40 mg DAILY VANESSA Administration Sodium Chloride 1,000 mls @ 125 mls/hr 02/18/17 09:15 02/21/17 09:42 Normal Saline - IV 125 mls/hr ASDIR VANESSA Administration Ceftriaxone Sodium 2 gm/ 100 mls @ 200 mls/hr 02/20/17 10:00 02/21/17 09:41 Dextrose IVPB 200 mls/hr DAILY VANESSA Administration Morphine Sulfate 4 mg 02/20/17 08:36 02/21/17 05:04 Morphine Injection - IVPUSH 4 mg Q4H PRN Administration PAIN Ondansetron HCl 4 mg 02/18/17 09:07 Zofran Injection IVPB Q6H PRN NAUSEA Home Medications Medication Instructions Recorded NK [No Known Home Medication] 02/01/17 Transvaginal U/S on 02/18: b/l ovarian masses with ascites CT abd on 02/18: b/l ovarian masses suspicious for malignancy with moderate amount of ascites ASSESSMENT AND PLAN: Patient is a 41 yo F h/o colon CA s/p resection admitted to med-surg for malignancy workup. # Bilateral ovarian masses, with hx of colon cancer diagnosed a year ago ( ) as per patient was treated with chemo, no family Hx of any cancer out of 9 children. OGYN consult appreciated. #Colon CA s/p chemotherapy s/p colonoscopy recently #Anemia most likely due to colon Cancer # abdominal pain with ascites can't r/o SBP since patient is a high risk started on IV Rocephin now.Consulted ID, Panculture ordered. DVT Prophylaxis: lovenox 40mg daily Visit type - Emergency Visit Emergency Visit: Yes ED Registration Date: 02/18/17 Care time: The patient presented to the Emergency Department on the above date and was hospitalized for further evaluation of their emergent condition. - New Patient This patient is new to me today: No - Critical Care Critical Care patient: No
[2017-02-21] MEDS ORDERED: morphine CARPU-JECT 2 MG/1 ML DISP.SYRIN IVPUSH PRN (16:52)
--- NOTE | 2017-02-21 19:30 | PN ---
Progress Note (short form) - Note Progress Note: Patent seen and examined Denies any complaintts AFVSS Cor: RSR, No murmurs, No gallops Lungs: Clear to P&A Abd: Soft, Normal bowel sounds, No organomegaly Ext:No significant edema labs/meds reviewed A/P 41 y/o female with h/o colon cancer, s/p resection/ sigmoid resection for adenoca of sigmoid -T4, N2b, M0 (T4- invasion of serosa, N2b-10 positive nodes, ) with LVI (lymphovascular invasion). High risk malignancy followed by 12 cycles of FOLFOX chemotherpy ( 5FU, Leucovorum, oxaliplatin). Treatment completed less than 1 year ago. Had loss of MLH-1 ,but no additional testing for Microsatellite instability performed. Presents now with 2 months of vaginal bleeding, ascites, and bilateral ovarian masses.Reportedly negative colonoscopy on February 02. f/u AUTOMOTIVE SERVICE ADVISOR onc consult
[2017-02-22 08:23] LABS: BASOPHIL 0.7 % (0-2.0); EOSINOPHIL 4.7 % (0-4.5); MCH 31.8 pg (25.7-33.7); MCHC 33.7 g/dl (32.0-36.0); MEAN CELL VOLUME 94.4 fl (80-96); MEAN PLT VOLUME 8.5 fl (7.5-11.1); NEUTROPHILS 59.1 % (42.8-82.8); PLATELET COUNT 290 K/MM3 (134-434); RDW 13.6 % (11.6-15.6); WHITE BLOOD COUNT 4.3 K/mm3 (4.0-10.0)
[2017-02-22] MEDS ORDERED: DEXTROSE 5%-WATER 100 ML IVPB ONE (08:32)
[2017-02-22 08:48] LABS: INR 1.27 (0.82-1.09)
[2017-02-22] MEDS: CEFTRIAXONE 2 GM in DEXTROSE 5%-WATER 100 ML IVPB SCH (09:06)
[2017-02-22 09:27] LABS: ALBUMIN 3.8 g/dl (3.4-5.0); ALK PHOS 59 U/L (45-117); ANION GAP 9 (8-16); BILIRUBIN,TOTAL 0.8 mg/dL (0.2-1.0); CALCIUM 8.8 mg/dL (8.5-10.1); CO2 27 mmol/L (21-32); CREATININE 0.6 mg/dL (0.55-1.02); GLUCOSE,RANDOM 82 mg/dL (74-106); MAGNESIUM 2.2 mg/dL (1.8-2.4); PHOSPHOROUS 2.5 mg/dL (2.5-4.9); SGOT/AST 33 U/L (15-37); SGPT/ALT 22 U/L (12-78); TOT PROT 7.6 g/dl (6.4-8.2)
[2017-02-22] MEDS ORDERED: morphine CARPU-JECT 2 MG/1 ML DISP.SYRIN IVPUSH ONE (12:47)
[2017-02-22] MEDS: SODIUM CHLORIDE 1,000 ML IV SCH (13:04)
[2017-02-22] MEDS ORDERED: ACETAMINOPHEN 325 MG TABLET (FP) PO ONE (13:30)
[2017-02-22 13:45] LABS: PERITONEAL FLUID MACROPHAGE 63 %; PERITONEAL FLUID MONOCYTE 4 %; PERITONEAL FLUID NEUTROPHIL 33 %
[2017-02-22 15:31] VITALS: BP 126/77; PULSE 93; TEMP 99.3
--- NOTE | 2017-02-22 15:50 | PN ---
Physical Exam: SUBJECTIVE: Patient seen and examined. Says she feels better today. She denies abdominal pain at rest. She says her abdomen hurts only when palpated. OBJECTIVE: Vital Signs Period Temp Pulse Resp BP Sys/Herrera Pulse Ox Last 24 Hr 97.9 F-99.3 F 79-93 18-20 125-144/77-96 97-98 GENERAL: The patient is awake, alert, and fully oriented, in no acute distress. HEAD: Normal with no signs of trauma. EYES: PERRL, extraocular movements intact, sclera anicteric, conjunctiva clear. No ptosis. NECK: supple. LUNGS: Breath sounds equal, clear to auscultation bilaterally, no wheezes, no crackles, no accessory muscle use. HEART: Regular rate and rhythm, S1, S2 without murmur, rub or gallop. ABDOMEN: Soft, tender to palpation throughout, moderately distended, normoactive bowel sounds, EXTREMITIES: 2+ pulses, warm, well-perfused, no edema. PSYCH: Normal mood, normal affect. SKIN: Warm, dry, normal turgor, no rashes or lesions noted Laboratory Results - last 24 hr 02/22/17 02/22/17 02/22/17 07:30 07:30 07:30 WBC 4.3 D RBC 3.90 Hgb 12.4 Hct 36.8 MCV 94.4 MCH 31.8 MCHC 33.7 RDW 13.6 Plt Count 290 MPV 8.5 Neutrophils % 59.1 D Lymphocytes % 28.3 D Monocytes % 7.2 Eosinophils % 4.7 H D Basophils % 0.7 INR 1.27 H Sodium 141 Potassium 3.9 Chloride 105 Carbon Dioxide 27 Anion Gap 9 BUN 5 L D Creatinine 0.6 D Creat Clearance w eGFR > 60 Random Glucose 82 D Calcium 8.8 Phosphorus 2.5 Magnesium 2.2 Total Bilirubin 0.8 D AST 33 D ALT 22 Alkaline Phosphatase 59 Total Protein 7.6 Albumin 3.8 Peritoneal WBC Peritoneal RBC Periton Neutrophils Peritoneal Monocytes Periton Macrophages Peritoneal Tot Protein Peritoneal Albumin Peritoneal LDH Peritoneal Glucose Peritoneal Amylase Peritoneal Cholesterol Peritoneal Triglycerid 02/22/17 10:30 WBC RBC Hgb Hct MCV MCH MCHC RDW Plt Count MPV Neutrophils % Lymphocytes % Monocytes % Eosinophils % Basophils % INR Sodium Potassium Chloride Carbon Dioxide Anion Gap BUN Creatinine Creat Clearance w eGFR Random Glucose Calcium Phosphorus Magnesium Total Bilirubin AST ALT Alkaline Phosphatase Total Protein Albumin Peritoneal WBC 3527 Peritoneal RBC 64680 Periton Neutrophils 33 Peritoneal Monocytes 4 Periton Macrophages 63 Peritoneal Tot Protein 5 Peritoneal Albumin 3 Peritoneal LDH 808 Peritoneal Glucose 112 Peritoneal Amylase 22 Peritoneal Cholesterol 92 Peritoneal Triglycerid 44 Active Medications Generic Name Dose Route Start Last Admin Trade Name Freq PRN Reason Stop Dose Admin Sodium Chloride 1,000 mls @ 125 mls/hr 02/18/17 09:15 02/22/17 13:04 Normal Saline - IV Not Given ASDIR VANESSA Ceftriaxone Sodium 2 gm/ 100 mls @ 200 mls/hr 02/20/17 10:00 02/22/17 09:06 Dextrose IVPB 200 mls/hr DAILY VANESSA Administration Ondansetron HCl 4 mg 02/18/17 09:07 Zofran Injection IVPB Q6H PRN NAUSEA ASSESSMENT/PLAN: Patient is a 41 yo F h/o colon CA (Jul 2015) s/p resection sigmoid resection for adenocarcinoma of sigmoid -T4, N2b, M0 (T4- invasion of serosa, N2b-10 positive nodes) with LVI (lymphovascular invasion) presented to the ED with severe diffuse abdominal pain and vaginal bleeding and admitted for malignancy workup. #Bilateral ovarian masses -History of Colon cancer (tx with chemo) -Requires definitive diagnostic procedure -s/p ultrasound-guided paracentesis -awaiting fluid cytology -CEA/CA125 pending -DIRECTOR OF GRANTS-ONC consulted -Will need DIRECTOR OF GRANTS-ONC outpatient follow-up #Hx of Colon CA (Jul 2015) s/p chemotherapy -s/p resection -CEA pending #Anemia -likely due to cancer -will monitor #Abdominal Pain w/Ascites -R/O SBP vs Malignant Ascites per ID -ID consulted -cultures negative -Continue Rocephin as per ID -given IV morphine 1mg #Nausea -Zofran 4mg PRN Q6 #Headache -Given tylenol 650mg FEN: NS 125 cc/hour Electrolytes WNL Regular diet PPX: Lovenox 40mg SQ daily No Gi prophylaxis Visit type - Emergency Visit Emergency Visit: Yes ED Registration Date: 02/18/17 Care time: The patient presented to the Emergency Department on the above date and was hospitalized for further evaluation of their emergent condition. - New Patient This patient is new to me today: No - Critical Care Critical Care patient: No
--- NOTE | 2017-02-22 17:09 | PN ---
Teaching Attending Note Name of Resident: Natividad Lee ATTENDING PHYSICIAN STATEMENT I saw and evaluated the patient. I reviewed the resident's note and discussed the case with the resident. I agree with the resident's findings and plan as documented. SUBJECTIVE: Patient is comfortable has no further pain. Would like to go home. OBJECTIVE: Vital Signs Temperature 99.3 F 02/22/17 15:29 Pulse Rate 93 H 02/22/17 15:29 Respiratory Rate 18 02/22/17 15:29 Blood Pressure 126/77 02/22/17 15:29 O2 Sat by Pulse Oximetry (%) 97 02/22/17 10:05 CBCD WBC 4.3 K/mm3 (4.0-10.0) D 02/22/17 07:30 RBC 3.90 M/mm3 (3.60-5.2) 02/22/17 07:30 Hgb 12.4 GM/dL (10.7-15.3) 02/22/17 07:30 Hct 36.8 % (32.4-45.2) 02/22/17 07:30 MCV 94.4 fl (80-96) 02/22/17 07:30 MCHC 33.7 g/dl (32.0-36.0) 02/22/17 07:30 RDW 13.6 % (11.6-15.6) 02/22/17 07:30 Plt Count 290 K/MM3 (134-434) 02/22/17 07:30 MPV 8.5 fl (7.5-11.1) 02/22/17 07:30 CMP Sodium 141 mmol/L (136-145) 02/22/17 07:30 Potassium 3.9 mmol/L (3.5-5.1) 02/22/17 07:30 Chloride 105 mmol/L (98-107) 02/22/17 07:30 Carbon Dioxide 27 mmol/L (21-32) 02/22/17 07:30 Anion Gap 9 (8-16) 02/22/17 07:30 BUN 5 mg/dL (7-18) L D 02/22/17 07:30 Creatinine 0.6 mg/dL (0.55-1.02) D 02/22/17 07:30 Creat Clearance w eGFR > 60 (>60) 02/22/17 07:30 Random Glucose 82 mg/dL (74-106) D 02/22/17 07:30 Calcium 8.8 mg/dL (8.5-10.1) 02/22/17 07:30 Total Bilirubin 0.8 mg/dL (0.2-1.0) D 02/22/17 07:30 AST 33 U/L (15-37) D 02/22/17 07:30 ALT 22 U/L (12-78) 02/22/17 07:30 Alkaline Phosphatase 59 U/L (45-117) 02/22/17 07:30 Total Protein 7.6 g/dl (6.4-8.2) 02/22/17 07:30 Albumin 3.8 g/dl (3.4-5.0) 02/22/17 07:30 Current Medications Generic Name Dose Route Start Last Admin Trade Name Freq PRN Reason Stop Dose Admin Sodium Chloride 1,000 mls @ 125 mls/hr 02/18/17 09:15 02/22/17 13:04 Normal Saline - IV Not Given ASDIR VANESSA Ceftriaxone Sodium 2 gm/ 100 mls @ 200 mls/hr 02/20/17 10:00 02/22/17 09:06 Dextrose IVPB 200 mls/hr DAILY VANESSA Administration Ondansetron HCl 4 mg 02/18/17 09:07 Zofran Injection IVPB Q6H PRN NAUSEA Home Medications Medication Instructions Recorded NK [No Known Home Medication] 02/01/17 PE: abdomen: soft, NT, NR, s/p paracentesis today. BS positive.abdomen is soft , checked post parasentesis, no pain. no tenderness. ASSESSMENT AND PLAN: Patient is a 41 yo F h/o colon CA s/p resection admitted to med-surg for malignancy workup. # Bilateral ovarian masses, with hx of colon cancer diagnosed a year ago ( ) as per patient was treated with chemo, no family Hx of any cancer out of 9 children. Called her oncologist , patient will follow up with him and call him tomorrow the [place] office. [phone], debbie arrange ONc.Obgyn for her. will continue antibiotics for 5 more days with ceftin 500mg po bidx 5 days. #Colon CA s/p chemotherapy s/p colonoscopy recently #Anemia most likely due to colon Cancer # abdominal pain with ascites improved and had parasentesis today by IR, Dr. Figueroa was informed that he needs to follow up with the cytology result with , agrees with the plan. Patient is being discharged home , at bedside. Understands the plan, patient was told by the Automatic Clipper And Stripper who is fluent in Romansh. 45minutes discharge time
--- NOTE | 2017-02-22 18:19 | DS ---
Physical Exam: SUBJECTIVE: Patient seen and examined. Offered no new complaints. New acute events overnight. OBJECTIVE: Vital Signs Period Temp Pulse Resp BP Sys/Herrera Pulse Ox Last 24 Hr 97.9 F-99.3 F 79-93 18-20 125-144/77-96 97-98 PHYSICAL EXAM GENERAL: The patient is awake, alert, and fully oriented, in no acute distress. HEAD: Normal with no signs of trauma. EYES: PERRL, extraocular movements intact, sclera anicteric, conjunctiva clear. ENT: Ears normal, nares patent, oropharynx clear without exudates, moist mucous membranes. NECK: Trachea midline, full range of motion, supple. LUNGS: Breath sounds equal, clear to auscultation bilaterally, no wheezes, no crackles, no accessory muscle use. HEART: Regular rate and rhythm, S1, S2 without murmur, rub or gallop. ABDOMEN: Soft, tender to palpation in all quadrants, distended, normoactive bowel sounds, no guarding, no rebound, no hepatosplenomegaly, no masses. EXTREMITIES: 2+ pulses, warm, well-perfused, no edema. NEUROLOGICAL: Cranial nerves II through XII grossly intact. Normal speech, gait not observed. PSYCH: Normal mood, normal affect. SKIN: Warm, dry, normal turgor, no rashes or lesions noted. LABS Laboratory Results - last 24 hr 02/22/17 02/22/17 02/22/17 07:30 07:30 07:30 WBC 4.3 D RBC 3.90 Hgb 12.4 Hct 36.8 MCV 94.4 MCH 31.8 MCHC 33.7 RDW 13.6 Plt Count 290 MPV 8.5 Neutrophils % 59.1 D Lymphocytes % 28.3 D Monocytes % 7.2 Eosinophils % 4.7 H D Basophils % 0.7 INR 1.27 H Sodium 141 Potassium 3.9 Chloride 105 Carbon Dioxide 27 Anion Gap 9 BUN 5 L D Creatinine 0.6 D Creat Clearance w eGFR > 60 Random Glucose 82 D Calcium 8.8 Phosphorus 2.5 Magnesium 2.2 Total Bilirubin 0.8 D AST 33 D ALT 22 Alkaline Phosphatase 59 Total Protein 7.6 Albumin 3.8 Peritoneal WBC Peritoneal RBC Periton Neutrophils Peritoneal Monocytes Periton Macrophages Peritoneal Tot Protein Peritoneal Albumin Peritoneal LDH Peritoneal Glucose Peritoneal Amylase Peritoneal Cholesterol Peritoneal Triglycerid 02/22/17 10:30 WBC RBC Hgb Hct MCV MCH MCHC RDW Plt Count MPV Neutrophils % Lymphocytes % Monocytes % Eosinophils % Basophils % INR Sodium Potassium Chloride Carbon Dioxide Anion Gap BUN Creatinine Creat Clearance w eGFR Random Glucose Calcium Phosphorus Magnesium Total Bilirubin AST ALT Alkaline Phosphatase Total Protein Albumin Peritoneal WBC 3527 Peritoneal RBC 64767 Periton Neutrophils 33 Peritoneal Monocytes 4 Periton Macrophages 63 Peritoneal Tot Protein 5 Peritoneal Albumin 3 Peritoneal LDH 808 Peritoneal Glucose 112 Peritoneal Amylase 22 Peritoneal Cholesterol 92 Peritoneal Triglycerid 44 HOSPITAL COURSE: Date of Admission:02/18/17 Patient is a 41 yo F h/o colon CA (Jul 2015) s/p resection sigmoid resection for adenocarcinoma of sigmoid -T4, N2b, M0 (T4- invasion of serosa, N2b-10 positive nodes) with LVI (lymphovascular invasion) presented to the ED with severe diffuse abdominal pain and vaginal bleeding and admitted for malignancy workup. #Bilateral ovarian masses - follow up with Dr. Tian Figueroa (Oncology) tomorrow on 02/23/17. -Discussed with patient and educated on possibility of malignancy. -Will need to be seen by AIRCRAFT CABIN CLEANER-ONC. -Start Ceftin 500mg PO BID for 5 days. -Follow-up paracentesis cytology -History of Colon cancer (tx with chemo) -Requires definitive diagnostic procedure -s/p ultrasound-guided paracentesis -awaiting fluid cytology -CEA/CA125 pending -AIRCRAFT CABIN CLEANER-ONC consulted -Will need AIRCRAFT CABIN CLEANER-ONC outpatient follow-up #Hx of Colon CA (Jul 2015) s/p chemotherapy -s/p resection -CEA pending #Anemia -likely due to cancer -will monitor #Abdominal Pain w/Ascites -R/O SBP vs Malignant Ascites per ID -ID consulted -cultures negative -Continue Rocephin as per ID -given IV morphine 1mg #Nausea -Zofran 4mg PRN Q6 #Headache -Given tylenol 650mg Date of Discharge: 02/22/17 Minutes to complete discharge: 45 Discharge Summary Reason For Visit: MASS OF OVARY Current Active Problems Abdominal pain (Acute) Ascites (Acute) Ovarian mass (Acute) Spontaneous bacterial peritonitis (Acute) Condition: Stable - Instructions Diet, Activity, Other Instructions: - follow up with Dr. Tian Figueroa (Oncology) tomorrow on 02/23/17. Please call the office in [place] for an appointment. -Discussed with patient and educated on possibility of malignancy. -you Will need to be seen by AIRCRAFT CABIN CLEANER-ONC. dr. Figueroa will arrange it for you -Start Ceftin 500mg PO BID for 5 days. -Follow-up with for paracentesis cytology report -CEA/CA125 pending - will arrange AIRCRAFT CABIN CLEANER-ONCologist as an outpatient for further work up. Referrals: Cindi Zacarias MD [Primary Care Provider] - Tian Figueroa MD [Staff Physician] - 02/23/17 (F/U at the [place] office for tomorrow appointment 02/23/17) Disposition: HOME - Home Medications Comprehensive Discharge Medication List: Ambulatory Orders Cefuroxime Axetil [Ceftin -] 500 mg PO Q12H #10 tablet 02/22/17 This patient is new to me today: No Emergency Visit: Yes ED Registration Date: 02/18/17 Care time: The patient presented to the Emergency Department on the above date and was hospitalized for further evaluation of their emergent condition. Critical Care patient: No - Discharge Referral Referred to [facility] Med P.C[facility] No
--- NOTE | 2017-02-22 18:24 | CONSULT ---
Consult Consult Specialty:: Sheet Metal Foreman Oncology Referred by:: Dr. Kim Reason for Consultation:: Bilateral adnexal masses - History of Present Illness Chief Complaint: abdominal pain History of Present Illness: 41 yo with h/o colon cancer diagnosed 2 year ago, s/p laparoscopic colon resection and chemotherapy ending one year ago presented to ED c/o abdominal pain. CT scan with ascites and bilateral adnexal masses. Patient reports negative colonoscopy in 02/03, has f/u with her oncologist q 3 months and has been ZAHRA since completing chemotherapy. Reports VB x 1 month, spotting which has since stopped. She has had Mirena IUD x 5 years. Mammogram negative this year, pap negative this year, always negative. Family history is negative for cancer. - History Source History Provided By: Patient, Medical Record - Past Medical History LEAD DATA ARCHITECT: Yes: Other (bells palsy). No: Alzheimer's, CVA, Dementia, Migraine, Multiple Sclerosis, Peripheral Neuropathy, Parkinson's, Seizure, Syncope, TIA, Vertigo ...LMP: 01/28/15 ...: No ...: 3 ...Para: 3 - Past Surgical History Past Surgical History: Yes: Colectomy, Colonoscopy, Upper Endoscopy. No: AAA Repair, AICD, Amputation, Appendectomy, Arthrosocopy, AV Fistula/Graft, Bariatric Surgery, Breast Biopsy, Bypass, CABG, Carotid Endarterectomy, Cataract Removal, Cholecystectomy, Colostomy, Craniotomy, , Cystectomy , Hernia Repair, Hysterectomy, Ileal Conduit, Ileosotomy, Joint Replacement, Kidney Transplant, Laminectomy, Liver Transplant, Mastectomy, Nephrectomy, Oopherectomy, Orchiectomy, Permanent Pacemaker, Prostatectomy, Splenectomy, Stent, Thoracotomy, TURP, Tonsillectomy, Tubal Ligation, Valve Replacement, Vasectomy, Vein Stripping/Ligation - Alcohol/Substance Use Hx Alcohol Use: No History of Substance Use: reports: None. denies: Cocaine, Heroin, Marijuana, Prescription, Tranquilizers - Smoking History Smoking history: Never smoked Have you smoked in the past 12 months: No - Social History Usual Living Arrangement: With Spouse ADL: Independent History of Recent Travel: No Home Medications - Allergies Allergies/Adverse Reactions: Allergies Allergy/AdvReac Type Severity Reaction Status Date / Time No Known Allergies Allergy Verified 02/18/17 04:20 - Home Medications Home Medications: Ambulatory Orders Cefuroxime Axetil [Ceftin -] 500 mg PO Q12H #10 tablet 02/22/17 Physical Exam Vital Signs: Vital Signs Temperature 99.3 F 02/22/17 15:29 Pulse Rate 93 H 02/22/17 15:29 Respiratory Rate 18 02/22/17 15:29 Blood Pressure 126/77 02/22/17 15:29 O2 Sat by Pulse Oximetry (%) 97 02/22/17 10:05 Constitutional: Yes: Well Nourished, No Distress, Calm Eyes: Yes: WNL HENT: Yes: WNL Neck: Yes: WNL Cardiovascular: Yes: WNL Respiratory: Yes: WNL Gastrointestinal: Yes: Soft, Ascites Musculoskeletal: Yes: WNL Extremities: Yes: WNL Edema: No Integumentary: Yes: WNL ...Motor Strength: WNL Psychiatric: Yes: WNL, Alert, Oriented Labs: CBC, BMP 02/22/17 07:30 02/22/17 07:30 Imaging - Results Cat Scan: Report Reviewed, Image Reviewed Ultrasound: Report Reviewed, Image Reviewed Assessment/Plan 41 yo with stage 3 colon cancer, s/p sigmoid resection, FOLFOX chemotherapy , ending approximately 1 year ago, now with bilateral adnexal masses. CA 125 pending, but likely to be elevated due to ascites. Paracentesis performed today , cytology pending. High suspicion for Krukenberg tumors. I have discussed with Marsha and her that we will await cytology. If consistent with GI, recommend chemotherapy, unless symptomatic from the masses could consider surgery. Otherwise, recommend chemotherapy. If cytology appears consistent with FOCUSING MACHINE OPERATOR origin, then would recommend ABDIAZIZ/BSO.
--- NOTE | 2017-02-22 18:25 | PN ---
Progress Note (short form) - Note Progress Note: Patient seen Family at bedside. Discussed pain managemetn. Patient mor confuse. Will d/c tramadol. Try IV tyleno. Spoke with Dr. Bishop . Plans for NH transfer.
--- NOTE | 2017-02-24 11:52 | PATH ---
Cytology Non-Gynecological Report Patient Name: ELIAS LANG [facility]. Rec. #: [id number] /Age/Gender: 1975 (Age: 41) / F Account: [id number] Location: [address] [place] [address]/[facility] Taken: 02/22/2017 Received: 02/22/2017 Reported: 02/24/2017 Physicians: Tessy Ruano M.D. Janel L'Official, MD Norman Rosen, M.D. Specimen(s) Received A: ABDOMINAL FLUID IN 50% ALCOHOL B: ABDOMINAL FLUID FRESH Clinical History Ascites, ovarian mass Final Diagnosis A,B. ABDOMINAL FLUID, PARACENTESIS: SATISFACTORY FOR EVALUATION. NO MALIGNANT CELLS IDENTIFIED. REACTIVE MESOTHELIAL CELLS, HISTIOCYTES AND MIXED INFLAMMATORY CELLS. Comment: Immunohistochemical stains performed and interpreted [facility] and cell block A show the following: the cells in the effusion are negative for BerEP4/JESSY and CK20 immunostains; CK7 highlight scattered mesothelial cells. These results are supportive of the interpretation above. Electronically Signed Shukri Jean Baptiste M.D. Gross Description A. Received is a 50 cc of bloody appearing fluid in 50% alcohol. One cytofunnel slide and one cell block are made. B. Received is 10 cc of yellow fluid fresh. One cytofunnel slide and one cell block are made.
== END 2017-02-22 19:15 | disposition home or self-care (01) | DRG 229 ==
LOC: JER 04:02 → JERBED 08:41 → J5S 10:19
PROVIDERS: ADMIT Internal Medicine; ATTEND Internal Medicine
PROC: 0W9G3ZX Drainage of Peritoneal Cavity, Percutaneous Approach, Diagnostic (ICD-10-PCS; principal; 2017-02-18)
PROC: BU45ZZZ Ultrasonography of Bilateral Ovaries (ICD-10-PCS; 2017-02-22)
DX: K65.2 Spontaneous bacterial peritonitis (principal); N83.8 Other noninflammatory disorders of ovary, fallopian tube and broad ligament; Z90.49 Acquired absence of other specified parts of digestive tract; R10.9 Unspecified abdominal pain; Z85.038 Personal history of other malignant neoplasm of large intestine; R18.8 Other ascites; D64.89 Other specified anemias; R11.0 Nausea; R51 Headache
CPT/HCPCS: 36415; 74177-TC; 76830-TC; 76942-TC; 80053; 81003; 82042; 82150; 82378; 82465; 82945; 83615; 83690; 83735; 84100; 84157; 84478; 84703; 85025; 85610; 85730; 86304; 86850; 86900; 86901; 87040; 87070; 87075; 87086; 87102; 87116; 87205; 87206; 87210; 87899; 88108; 88305-TC; 88341-TC; 89051; 99283-25; Q9967

== ENCOUNTER 2021-12-28 21:21 | Inpatient (IN) | payer OTHER ==
[2021-12-28 21:31] VITALS: BMI 26.5
[2021-12-28] MEDS ORDERED: SODIUM CHLORIDE 1,000 ML IV STA (22:11)
[2021-12-28] MEDS ORDERED: ACETAMINOPHEN 1000 MG/100 ML BAG IVPB ONE (22:12)
[2021-12-28] MEDS ORDERED: ACETAMINOPHEN INJECTION 100 ML IVPB ONE (22:15)
[2021-12-28] MEDS ORDERED: HYDROmorphone HCl 2 MG/ML VIAL ONE (22:27)
[2021-12-28 22:39] LABS: BASO % 0.8 % (0-2.0); EOS % 1.6 % (0-4.5); HEMATOCRIT 33.5 % (32.4-45.2); LYMPH % 27.8 % (8-40); MCH 27.7 pg (25.7-33.7); MCHC 32.7 g/dl (32.0-36.0); MEAN CELL VOLUME 84.5 fl (80-96); MEAN PLT VOLUME 7.9 fl (7.5-11.1); MONO % 9.6 % (3.8-10.2); NEUT % 60.2 % (42.8-82.8); PLATELET COUNT 558 10^3/uL (134-434); RBC 3.96 M/mm3 (3.60-5.2); RDW 19.9 % (11.6-15.6); WHITE BLOOD COUNT 5.9 K/mm3 (4.0-10.0)
[2021-12-28 23:00] LABS: BLOOD UREA NITROGEN 15.6 mg/dL (7-18); CALCIUM 9.4 mg/dL (8.5-10.1)
[2021-12-28 23:04] LABS: CREATININE 1.2 mg/dL (0.55-1.3)
[2021-12-28 23:05] LABS: BILIRUBIN,TOTAL 0.4 mg/dL (0.2-1); TOT PROT 8.2 g/dl (6.4-8.2)
[2021-12-28] MEDS ORDERED: HYDROmorphone HCL CARPU-JECT 2 MG/1 ML DISP.SYRIN IVPUSH STA (23:33)
[2021-12-29] MEDS ORDERED: HYDROmorphone HCl 2 MG/ML VIAL ONE (02:23)
[2021-12-29] MEDS ORDERED: HYDROmorphone HCL CARPU-JECT 2 MG/1 ML DISP.SYRIN IVPUSH STA (02:29)
[2021-12-29] MEDS ORDERED: HYDROmorphone HCl 2 MG/ML VIAL IVPUSH PRN ×3 (03:44→17:08)
[2021-12-29] MEDS ORDERED: DEXTROSE 5%-NORMAL SALINE 1,000 ML IV SCH (03:45)
[2021-12-29] MEDS ORDERED: ACETAMINOPHEN 1000 MG/100 ML BAG IVPB PRN (03:50)
[2021-12-29 07:23] LABS: BASO % 0.8 % (0-2.0); EOS % 2.2 % (0-4.5); HEMOGLOBIN 9.4 GM/dL (10.7-15.3); LYMPH % 25.9 % (8-40); MCH 27.9 pg (25.7-33.7); MCHC 32.3 g/dl (32.0-36.0); MEAN CELL VOLUME 86.3 fl (80-96); MEAN PLT VOLUME 8.5 fl (7.5-11.1); MONO % 11.5 % (3.8-10.2); NEUT % 59.6 % (42.8-82.8); PLATELET COUNT 469 10^3/uL (134-434); RBC 3.36 M/mm3 (3.60-5.2); RDW 20.3 % (11.6-15.6); WHITE BLOOD COUNT 5.6 K/mm3 (4.0-10.0)
[2021-12-29 07:58] LABS: ALBUMIN 2.6 g/dl (3.4-5.0); BLOOD UREA NITROGEN 13.8 mg/dL (7-18); CALCIUM 8.7 mg/dL (8.5-10.1); MAGNESIUM 2.1 mg/dL (1.8-2.4)
[2021-12-29 08:01] LABS: BILIRUBIN,TOTAL 0.4 mg/dL (0.2-1); PHOSPHOROUS 4.5 mg/dL (2.5-4.9)
[2021-12-29 08:04] LABS: CREATININE 0.9 mg/dL (0.55-1.3)
[2021-12-29 08:05] LABS: TOT PROT 7.2 g/dl (6.4-8.2)
[2021-12-29] MEDS: ENOXAPARIN NA (PORCINE) 40 MG/0.4 ML DISP.SYRIN SQ SCH (11:10)
[2021-12-29] MEDS ORDERED: HYDROmorphone HCL 2 MG TABLET PO PRN (16:57)
[2021-12-29] MEDS: HYDROmorphone HCl 2 MG/ML VIAL IVPB PRN (23:08)
[2021-12-30] MEDS: HYDROmorphone HCl 2 MG/ML VIAL IVPB PRN ×4 (04:02→23:26)
[2021-12-30] MEDS ORDERED: FENTANYL PATCH WASTE MC PRN (09:46)
[2021-12-30] MEDS: fentaNYL 25mcg/hr PATCH.TD72 TD SCH (10:14)
[2021-12-30] MEDS: ENOXAPARIN NA (PORCINE) 40 MG/0.4 ML DISP.SYRIN SQ SCH (10:15)
[2021-12-30] MEDS: AMINO ACIDS 4.25%/D5W 1,000 ML IV SCH (14:33)
[2021-12-31 09:07] LABS: BASO % 0.6 % (0-2.0); HEMATOCRIT 28.8 % (32.4-45.2); HEMOGLOBIN 9.4 GM/dL (10.7-15.3); LYMPH % 32.8 % (8-40); MCH 28.1 pg (25.7-33.7); MCHC 32.7 g/dl (32.0-36.0); MEAN CELL VOLUME 86.1 fl (80-96); MEAN PLT VOLUME 8.6 fl (7.5-11.1); MONO % 13.6 % (3.8-10.2); PLATELET COUNT 447 10^3/uL (134-434); RBC 3.34 M/mm3 (3.60-5.2); RDW 19.9 % (11.6-15.6); WHITE BLOOD COUNT 4.3 K/mm3 (4.0-10.0)
[2021-12-31 09:31] LABS: ALBUMIN 2.4 g/dl (3.4-5.0); BLOOD UREA NITROGEN 14.8 mg/dL (7-18); CALCIUM 8.6 mg/dL (8.5-10.1); MAGNESIUM 1.9 mg/dL (1.8-2.4)
[2021-12-31] MEDS: ENOXAPARIN NA (PORCINE) 40 MG/0.4 ML DISP.SYRIN SQ SCH (09:31)
[2021-12-31] MEDS: HYDROmorphone HCl 2 MG/ML VIAL IVPB PRN ×3 (09:32→23:25)
[2021-12-31 09:34] LABS: BILIRUBIN,TOTAL 0.3 mg/dL (0.2-1); TOT PROT 6.8 g/dl (6.4-8.2)
[2021-12-31] MEDS: AMINO ACIDS 4.25%/D5W 1,000 ML IV SCH ×2 (09:35→17:32)
[2022-01-01] MEDS: HYDROmorphone HCl 2 MG/ML VIAL IVPB PRN ×4 (02:27→21:58)
[2022-01-01] MEDS ORDERED: HYDROmorphone HCl 2 MG/ML VIAL IVPB ONE (04:21)
[2022-01-01] MEDS ORDERED: INSULIN (NOVOLOG) ASPART 100 UNITS/ML 10ML VIAL ONE (06:43)
[2022-01-01 08:54] LABS: BASO % 0.7 % (0-2.0); EOS % 1.8 % (0-4.5); HEMOGLOBIN 9.6 GM/dL (10.7-15.3); LYMPH % 27.6 % (8-40); MCH 27.7 pg (25.7-33.7); MCHC 32.2 g/dl (32.0-36.0); MEAN CELL VOLUME 86.1 fl (80-96); MEAN PLT VOLUME 8.3 fl (7.5-11.1); MONO % 13.3 % (3.8-10.2); NEUT % 56.6 % (42.8-82.8); PLATELET COUNT 431 10^3/uL (134-434); RBC 3.48 M/mm3 (3.60-5.2); RDW 19.8 % (11.6-15.6); WHITE BLOOD COUNT 4.4 K/mm3 (4.0-10.0)
[2022-01-01] MEDS: ENOXAPARIN NA (PORCINE) 40 MG/0.4 ML DISP.SYRIN SQ SCH (09:06)
[2022-01-01 09:15] LABS: ALBUMIN 2.3 g/dl (3.4-5.0); CALCIUM 8.7 mg/dL (8.5-10.1)
[2022-01-01 09:16] LABS: BLOOD UREA NITROGEN 14.3 mg/dL (7-18); MAGNESIUM 1.9 mg/dL (1.8-2.4)
[2022-01-01 09:18] LABS: CREATININE 0.8 mg/dL (0.55-1.3)
[2022-01-01 09:20] LABS: TOT PROT 6.8 g/dl (6.4-8.2)
[2022-01-01 09:23] LABS: BILIRUBIN,TOTAL 0.3 mg/dL (0.2-1)
[2022-01-01] MEDS: AMINO ACIDS 4.25%/D5W 1,000 ML IV SCH (11:16)
[2022-01-02] MEDS: AMINO ACIDS 4.25%/D5W 1,000 ML IV SCH ×2 (01:35→10:13)
[2022-01-02] MEDS: HYDROmorphone HCl 2 MG/ML VIAL IVPB PRN ×4 (05:58→21:47)
[2022-01-02 09:07] LABS: BASO % 0.6 % (0-2.0); HEMATOCRIT 31.3 % (32.4-45.2); HEMOGLOBIN 10.1 GM/dL (10.7-15.3); LYMPH % 20.3 % (8-40); MCH 27.6 pg (25.7-33.7); MCHC 32.1 g/dl (32.0-36.0); MEAN CELL VOLUME 86.2 fl (80-96); MEAN PLT VOLUME 8.3 fl (7.5-11.1); MONO % 10.9 % (3.8-10.2); NEUT % 66.2 % (42.8-82.8); PLATELET COUNT 520 10^3/uL (134-434); RBC 3.64 M/mm3 (3.60-5.2); RDW 19.7 % (11.6-15.6); WHITE BLOOD COUNT 4.9 K/mm3 (4.0-10.0)
[2022-01-02 09:35] LABS: ALBUMIN 2.5 g/dl (3.4-5.0); BLOOD UREA NITROGEN 15.4 mg/dL (7-18); MAGNESIUM 1.8 mg/dL (1.8-2.4)
[2022-01-02 09:38] LABS: CREATININE 0.9 mg/dL (0.55-1.3)
[2022-01-02 09:40] LABS: BILIRUBIN,TOTAL 0.3 mg/dL (0.2-1); TOT PROT 7.3 g/dl (6.4-8.2)
[2022-01-02] MEDS: fentaNYL 25mcg/hr PATCH.TD72 TD SCH (10:08)
[2022-01-02] MEDS: ENOXAPARIN NA (PORCINE) 40 MG/0.4 ML DISP.SYRIN SQ SCH (10:08)
[2022-01-03] MEDS: HYDROmorphone HCl 2 MG/ML VIAL IVPB PRN ×6 (01:19→21:32)
[2022-01-03] MEDS: ENOXAPARIN NA (PORCINE) 40 MG/0.4 ML DISP.SYRIN SQ SCH (09:31)
[2022-01-03] MEDS: AMINO ACIDS 4.25%/D5W 1,000 ML IV SCH (10:00)
[2022-01-03] MEDS ORDERED: guaiFENesin 200 MG/10 ML 10 ML UNIT-DOSE CUPS PO ONE (20:09)
[2022-01-04] MEDS: HYDROmorphone HCl 2 MG/ML VIAL IVPB PRN ×4 (01:38→11:39)
[2022-01-04] MEDS: AMINO ACIDS 4.25%/D5W 1,000 ML IV SCH ×2 (04:34→10:00)
[2022-01-04] MEDS: ENOXAPARIN NA (PORCINE) 40 MG/0.4 ML DISP.SYRIN SQ SCH (09:58)
[2022-01-04] MEDS ORDERED: HYDROmorphone HCl 2 MG/ML VIAL IVPB PRN (12:10)
[2022-01-04] MEDS: fentaNYL 12mcg/hr PATCH.TD72 TD SCH (14:31)
[2022-01-04] MEDS: fentaNYL 25mcg/hr PATCH.TD72 TD SCH (14:32)
[2022-01-04] MEDS: FENTANYL PATCH WASTE TD PRN (14:46)
[2022-01-05] MEDS ORDERED: guaiFENesin 200 MG/10 ML 10 ML UNIT-DOSE CUPS PO PRN (05:35)
[2022-01-05] MEDS: ENOXAPARIN NA (PORCINE) 40 MG/0.4 ML DISP.SYRIN SQ SCH (09:20)
[2022-01-05] MEDS ORDERED: LORazepam 0.5 MG TABLET PO PRN (10:34)
[2022-01-05] MEDS ORDERED: ALBUTEROL SO4 2.5/IPRATROPIUM 0.5 INH SOL 3 ML VIAL.NEB. NEB ONE (10:35)
[2022-01-05] MEDS ORDERED: ALBUTEROL SO4 0.083% IH SOL 2.5 MG/3 ML VIAL.NEB. NEB PRN (10:35)
[2022-01-05] MEDS ORDERED: FUROSEMIDE 40 MG TABLET (FP) PO SCH (16:00)
[2022-01-05] MEDS: FUROSEMIDE 40 MG TABLET (FP) PO SCH ×2 (17:07→22:42)
[2022-01-06 08:27] LABS: BASO % 0.4 % (0-2.0); EOS % 2.1 % (0-4.5); HEMATOCRIT 32.2 % (32.4-45.2); HEMOGLOBIN 10.4 GM/dL (10.7-15.3); LYMPH % 12.1 % (8-40); MCH 27.6 pg (25.7-33.7); MCHC 32.4 g/dl (32.0-36.0); MEAN CELL VOLUME 85.2 fl (80-96); MEAN PLT VOLUME 8.4 fl (7.5-11.1); MONO % 10.1 % (3.8-10.2); NEUT % 75.3 % (42.8-82.8); PLATELET COUNT 451 10^3/uL (134-434); RBC 3.77 M/mm3 (3.60-5.2); RDW 19.9 % (11.6-15.6); WHITE BLOOD COUNT 6.7 K/mm3 (4.0-10.0)
[2022-01-06 08:51] LABS: ALBUMIN 2.4 g/dl (3.4-5.0); MAGNESIUM 1.7 mg/dL (1.8-2.4)
[2022-01-06 08:53] LABS: CREATININE 0.9 mg/dL (0.55-1.3)
[2022-01-06 08:55] LABS: BILIRUBIN,TOTAL 0.5 mg/dL (0.2-1); TOT PROT 7.6 g/dl (6.4-8.2)
[2022-01-06] MEDS: FUROSEMIDE 40 MG TABLET (FP) PO SCH ×2 (09:19→22:05)
[2022-01-06] MEDS: ENOXAPARIN NA (PORCINE) 40 MG/0.4 ML DISP.SYRIN SQ SCH (09:20)
[2022-01-07 08:42] LABS: BASO % 0.5 % (0-2.0); EOS % 2.7 % (0-4.5); HEMATOCRIT 31.7 % (32.4-45.2); HEMOGLOBIN 10.2 GM/dL (10.7-15.3); LYMPH % 12.5 % (8-40); MCH 27.5 pg (25.7-33.7); MCHC 32.3 g/dl (32.0-36.0); MEAN CELL VOLUME 85.2 fl (80-96); MEAN PLT VOLUME 8.6 fl (7.5-11.1); MONO % 9.8 % (3.8-10.2); NEUT % 74.5 % (42.8-82.8); PLATELET COUNT 487 10^3/uL (134-434); RBC 3.72 M/mm3 (3.60-5.2); RDW 20.1 % (11.6-15.6); WHITE BLOOD COUNT 8.3 K/mm3 (4.0-10.0)
[2022-01-07 08:48] LABS: INR 1.34 (0.83-1.09); PROTHROMBIN TIME (PATIENT) 15.5 SEC (9.7-13.0)
[2022-01-07 09:08] LABS: ALBUMIN 2.6 g/dl (3.4-5.0); BLOOD UREA NITROGEN 15.7 mg/dL (7-18); CALCIUM 8.9 mg/dL (8.5-10.1)
[2022-01-07 09:09] LABS: MAGNESIUM 1.6 mg/dL (1.8-2.4)
[2022-01-07 09:11] LABS: CREATININE 0.9 mg/dL (0.55-1.3)
[2022-01-07 09:13] LABS: BILIRUBIN,TOTAL 0.6 mg/dL (0.2-1)
[2022-01-07] MEDS: FUROSEMIDE 40 MG TABLET (FP) PO SCH ×2 (09:36→21:30)
[2022-01-07] MEDS: fentaNYL 12mcg/hr PATCH.TD72 TD SCH (12:01)
[2022-01-07] MEDS: fentaNYL 25mcg/hr PATCH.TD72 TD SCH (12:02)
[2022-01-07] MEDS: FENTANYL PATCH WASTE TD PRN (12:30)
[2022-01-07 18:35] LABS: BF WBC & OTHER NUCLEATED CELLS 401 /mm3
[2022-01-07 19:30] LABS: BODY FLUID MACROPHAGES 8 %; BODY FLUID MONOCYTE 28 %
[2022-01-08 08:58] LABS: BASO % 0.4 % (0-2.0); EOS % 0.1 % (0-4.5); HEMATOCRIT 29.1 % (32.4-45.2); HEMOGLOBIN 9.2 GM/dL (10.7-15.3); LYMPH % 8.4 % (8-40); MCH 26.9 pg (25.7-33.7); MCHC 31.8 g/dl (32.0-36.0); MEAN CELL VOLUME 84.6 fl (80-96); MEAN PLT VOLUME 8.6 fl (7.5-11.1); MONO % 9.6 % (3.8-10.2); NEUT % 81.5 % (42.8-82.8); PLATELET COUNT 400 10^3/uL (134-434); RBC 3.43 M/mm3 (3.60-5.2); RDW 20.3 % (11.6-15.6); WHITE BLOOD COUNT 7.6 K/mm3 (4.0-10.0)
[2022-01-08 09:05] LABS: CALCIUM 8.3 mg/dL (8.5-10.1)
[2022-01-08 09:06] LABS: ALBUMIN 2.3 g/dl (3.4-5.0); BLOOD UREA NITROGEN 17.7 mg/dL (7-18); MAGNESIUM 1.6 mg/dL (1.8-2.4)
[2022-01-08] MEDS: FUROSEMIDE 40 MG TABLET (FP) PO SCH (09:10)
[2022-01-08 09:11] LABS: BILIRUBIN,TOTAL 0.4 mg/dL (0.2-1); TOT PROT 7.1 g/dl (6.4-8.2)
[2022-01-08] MEDS ORDERED: MAGNESIUM OXIDE 400 MG TABLET (FP) PO ONE (10:17)
[2022-01-08] MEDS ORDERED: POTASSIUM CHLORIDE ORAL LIQUID 20 MEQ/15 ML PO ONE (10:17)
[2022-01-08] MEDS ORDERED: POTASSIUM CHLORIDE ORAL LIQUID 20 MEQ/15 ML PO SCH (10:30)
[2022-01-08] MEDS ORDERED: ONDANSETRON *ODT* 4 MG TABLET SL PRN (10:46)
[2022-01-08] MEDS ORDERED: ONDANSETRON 4 MG/2 ML VIAL IVPUSH ONE (12:27)
[2022-01-08] MEDS ORDERED: ACETAMINOPHEN 1000 MG/100 ML BAG IVPB ONE ×2 (14:59→18:00)
[2022-01-08] MEDS ORDERED: ACETAMINOPHEN 1000 MG/100 ML BAG IVPB PRN (18:12)
[2022-01-09] MEDS: ONDANSETRON 4 MG/2 ML VIAL IVPUSH PRN (07:12)
[2022-01-09] MEDS: ENOXAPARIN NA (PORCINE) 40 MG/0.4 ML DISP.SYRIN SQ SCH (10:02)
[2022-01-09] MEDS: MULTIVITAMINS (DAILY MVI) TABLET (FP) PO SCH (10:02)
[2022-01-09 14:08] LABS: BODY FLUID ALBUMIN 2.3 g/dL (Not Estab.)
[2022-01-09] MEDS ORDERED: HYDROmorphone HCl 2 MG/ML VIAL IVPB ONE (16:39)
[2022-01-09] MEDS ORDERED: FAMOTIDINE 20 MG/50 ML IVPB 20 MG/50 ML MG IVPB ONE (16:39)
[2022-01-10] MEDS: ENOXAPARIN NA (PORCINE) 40 MG/0.4 ML DISP.SYRIN SQ SCH (09:34)
[2022-01-10] MEDS: MULTIVITAMINS (DAILY MVI) TABLET (FP) PO SCH (09:35)
[2022-01-10] MEDS: FENTANYL PATCH WASTE MC PRN (12:32)
[2022-01-10] MEDS: fentaNYL 50mcg/hr PATCH.TD72 TD SCH (12:43)
[2022-01-10] MEDS: LIDOCAINE 5% TOPICAL PATCH TP SCH (12:44)
[2022-01-10] MEDS ORDERED: FAMOTIDINE 20 MG/50 ML IVPB 20 MG/50 ML MG IVPB ONE (15:55)
[2022-01-10] MEDS: oxyCODONE HCL 5 MG TABLET PO PRN (20:47)
[2022-01-10] MEDS: FAMOTIDINE 20 MG/50 ML IVPB 20 MG/50 ML MG IVPB SCH (21:49)
[2022-01-10] MEDS: LIDOCAINE PATCH REMOVAL MC SCH (21:53)
[2022-01-11] MEDS: oxyCODONE HCL 5 MG TABLET PO PRN ×4 (01:26→22:19)
[2022-01-11] MEDS: MULTIVITAMINS (DAILY MVI) TABLET (FP) PO SCH (10:59)
[2022-01-11] MEDS: LIDOCAINE 5% TOPICAL PATCH TP SCH (10:59)
[2022-01-11] MEDS: FAMOTIDINE 20 MG/50 ML IVPB 20 MG/50 ML MG IVPB SCH ×2 (10:59→22:19)
[2022-01-11] MEDS: ENOXAPARIN NA (PORCINE) 40 MG/0.4 ML DISP.SYRIN SQ SCH (11:01)
[2022-01-11] MEDS: MAG HYDROX/ALH/SMC/DPHA/LIDO 240 ML MOUTHWASH MM SCH ×2 (11:26→17:59)
[2022-01-11] MEDS ORDERED: oxyCODONE HCL 5 MG TABLET PO ONE (16:29)
[2022-01-11] MEDS: MAG HYDROX/AL HYDROX/SIMETH 30 ML UNIT-DOSE CUP PO PRN (17:59)
[2022-01-11] MEDS: LIDOCAINE PATCH REMOVAL MC SCH (22:19)
[2022-01-12] MEDS: MAG HYDROX/AL HYDROX/SIMETH 30 ML UNIT-DOSE CUP PO PRN (02:13)
[2022-01-12] MEDS: MAG HYDROX/ALH/SMC/DPHA/LIDO 240 ML MOUTHWASH MM SCH ×5 (02:35→23:06)
[2022-01-12] MEDS: oxyCODONE HCL 5 MG TABLET PO PRN ×4 (04:14→20:47)
[2022-01-12] MEDS: ENOXAPARIN NA (PORCINE) 40 MG/0.4 ML DISP.SYRIN SQ SCH (09:12)
[2022-01-12] MEDS: FAMOTIDINE 20 MG/50 ML IVPB 20 MG/50 ML MG IVPB SCH ×2 (09:24→21:58)
[2022-01-12] MEDS: MULTIVITAMINS (DAILY MVI) TABLET (FP) PO SCH (09:24)
[2022-01-12] MEDS: LIDOCAINE 5% TOPICAL PATCH TP SCH (09:25)
[2022-01-12] MEDS ORDERED: oxyCODONE HCL 5 MG TABLET PO ONE (16:38)
[2022-01-12] MEDS: SIMETHICONE 80 MG TAB.CHEW (FP) PO PRN (17:28)
[2022-01-12] MEDS ORDERED: oxyCODONE HCL 5 MG TABLET PO PRN (20:00)
[2022-01-12] MEDS: LIDOCAINE PATCH REMOVAL MC SCH (22:01)
[2022-01-13] MEDS: oxyCODONE HCL 5 MG TABLET PO PRN ×2 (02:36→14:34)
[2022-01-13] MEDS: MAG HYDROX/ALH/SMC/DPHA/LIDO 240 ML MOUTHWASH MM SCH ×3 (05:39→18:48)
[2022-01-13] MEDS: MAG HYDROX/AL HYDROX/SIMETH 30 ML UNIT-DOSE CUP PO PRN (10:43)
[2022-01-13] MEDS: MULTIVITAMINS (DAILY MVI) TABLET (FP) PO SCH (10:43)
[2022-01-13] MEDS: FAMOTIDINE 20 MG/50 ML IVPB 20 MG/50 ML MG IVPB SCH ×2 (10:43→22:21)
[2022-01-13] MEDS: ENOXAPARIN NA (PORCINE) 40 MG/0.4 ML DISP.SYRIN SQ SCH (10:43)
[2022-01-13] MEDS: LIDOCAINE 5% TOPICAL PATCH TP SCH (10:43)
[2022-01-13] MEDS: fentaNYL 50mcg/hr PATCH.TD72 TD SCH (12:24)
[2022-01-13] MEDS: SIMETHICONE 80 MG TAB.CHEW (FP) PO PRN (14:35)
[2022-01-13] MEDS: FENTANYL PATCH WASTE MC PRN (15:44)
[2022-01-13] MEDS: LIDOCAINE PATCH REMOVAL MC SCH (22:21)
[2022-01-14] MEDS: MAG HYDROX/ALH/SMC/DPHA/LIDO 240 ML MOUTHWASH MM SCH ×4 (00:54→17:34)
[2022-01-14] MEDS: oxyCODONE HCL 5 MG TABLET PO PRN ×2 (03:48→13:44)
[2022-01-14] MEDS: LIDOCAINE 5% TOPICAL PATCH TP SCH (10:20)
[2022-01-14] MEDS: FAMOTIDINE 20 MG/50 ML IVPB 20 MG/50 ML MG IVPB SCH ×2 (10:20→21:29)
[2022-01-14] MEDS: ENOXAPARIN NA (PORCINE) 40 MG/0.4 ML DISP.SYRIN SQ SCH (10:20)
[2022-01-14] MEDS: MULTIVITAMINS (DAILY MVI) TABLET (FP) PO SCH (10:21)
[2022-01-14] MEDS: LIDOCAINE PATCH REMOVAL MC SCH (21:29)
[2022-01-14] MEDS: OFLOXACIN 0.3% OTIC SOLUTION 5 ML BOTTLE AU SCH (21:29)
[2022-01-15] MEDS: MAG HYDROX/ALH/SMC/DPHA/LIDO 240 ML MOUTHWASH MM SCH ×4 (01:05→18:30)
[2022-01-15] MEDS: oxyCODONE HCL 5 MG TABLET PO PRN ×2 (05:57→10:22)
[2022-01-15] MEDS: ENOXAPARIN NA (PORCINE) 40 MG/0.4 ML DISP.SYRIN SQ SCH (09:37)
[2022-01-15] MEDS: MULTIVITAMINS (DAILY MVI) TABLET (FP) PO SCH (09:37)
[2022-01-15] MEDS: FAMOTIDINE 20 MG/50 ML IVPB 20 MG/50 ML MG IVPB SCH (09:38)
[2022-01-15] MEDS: LIDOCAINE 5% TOPICAL PATCH TP SCH (09:38)
[2022-01-15] MEDS: OFLOXACIN 0.3% OTIC SOLUTION 5 ML BOTTLE AU SCH ×2 (09:44→22:07)
[2022-01-15] MEDS ORDERED: FENTANYL PATCH WASTE MC PRN (11:57)
[2022-01-15] MEDS: fentaNYL 75mcg/hr PATCH.TD72 TD SCH (14:23)
[2022-01-15] MEDS: FAMOTIDINE 20 MG TABLET PO SCH ×2 (14:24→22:06)
[2022-01-15] MEDS: LIDOCAINE PATCH REMOVAL MC SCH (22:06)
[2022-01-15] MEDS: HYDROmorphone HCL 2 MG TABLET PO PRN (22:08)
[2022-01-16] MEDS: MAG HYDROX/ALH/SMC/DPHA/LIDO 240 ML MOUTHWASH MM SCH ×4 (00:14→17:17)
[2022-01-16] MEDS: HYDROmorphone HCL 2 MG TABLET PO PRN ×2 (05:42→21:35)
[2022-01-16] MEDS: OFLOXACIN 0.3% OTIC SOLUTION 5 ML BOTTLE AU SCH ×3 (10:00→21:06)
[2022-01-16] MEDS: LIDOCAINE 5% TOPICAL PATCH TP SCH (10:20)
[2022-01-16] MEDS: ENOXAPARIN NA (PORCINE) 40 MG/0.4 ML DISP.SYRIN SQ SCH (10:21)
[2022-01-16] MEDS: MULTIVITAMINS (DAILY MVI) TABLET (FP) PO SCH (10:21)
[2022-01-16] MEDS: FAMOTIDINE 20 MG TABLET PO SCH ×2 (10:21→21:35)
[2022-01-16] MEDS: MAG HYDROX/AL HYDROX/SIMETH 30 ML UNIT-DOSE CUP PO PRN (17:05)
[2022-01-16] MEDS: LIDOCAINE PATCH REMOVAL MC SCH (21:35)
[2022-01-17] MEDS: MAG HYDROX/ALH/SMC/DPHA/LIDO 240 ML MOUTHWASH MM SCH ×4 (00:55→17:27)
[2022-01-17] MEDS: MAG HYDROX/AL HYDROX/SIMETH 30 ML UNIT-DOSE CUP PO PRN ×2 (00:57→21:28)
[2022-01-17] MEDS: FAMOTIDINE 20 MG TABLET PO SCH ×2 (09:55→21:26)
[2022-01-17] MEDS: MULTIVITAMINS (DAILY MVI) TABLET (FP) PO SCH (09:55)
[2022-01-17] MEDS: ENOXAPARIN NA (PORCINE) 40 MG/0.4 ML DISP.SYRIN SQ SCH (09:55)
[2022-01-17] MEDS: LIDOCAINE 5% TOPICAL PATCH TP SCH ×2 (09:56→10:11)
[2022-01-17] MEDS: SIMETHICONE 80 MG TAB.CHEW (FP) PO PRN ×2 (09:56→17:27)
[2022-01-17] MEDS: OFLOXACIN 0.3% OTIC SOLUTION 5 ML BOTTLE AU SCH ×2 (09:57→21:27)
[2022-01-17] MEDS ORDERED: POLYETHYLENE GLYCOL (HEALTHYLAX) 3350 17 GM PACKET PO ONE (10:45)
[2022-01-17 15:01] VITALS: RESP 20
[2022-01-17] MEDS: ONDANSETRON 4 MG/2 ML VIAL IVPUSH PRN (15:04)
[2022-01-17] MEDS: LIDOCAINE PATCH REMOVAL MC SCH (21:26)
[2022-01-17] MEDS: HYDROmorphone HCL 2 MG TABLET PO PRN (21:27)
[2022-01-18] MEDS: MAG HYDROX/ALH/SMC/DPHA/LIDO 240 ML MOUTHWASH MM SCH ×4 (01:52→17:14)
[2022-01-18] MEDS: HYDROmorphone HCL 2 MG TABLET PO PRN ×2 (06:04→15:12)
[2022-01-18] MEDS: SIMETHICONE 80 MG TAB.CHEW (FP) PO PRN (06:43)
[2022-01-18] MEDS: MULTIVITAMINS (DAILY MVI) TABLET (FP) PO SCH (10:25)
[2022-01-18] MEDS: FAMOTIDINE 20 MG TABLET PO SCH ×2 (10:25→21:56)
[2022-01-18] MEDS: ENOXAPARIN NA (PORCINE) 40 MG/0.4 ML DISP.SYRIN SQ SCH (10:25)
[2022-01-18] MEDS: OFLOXACIN 0.3% OTIC SOLUTION 5 ML BOTTLE AU SCH ×2 (10:25→21:58)
[2022-01-18] MEDS: POLYETHYLENE GLYCOL (HEALTHYLAX) 3350 17 GM PACKET PO SCH (10:25)
[2022-01-18] MEDS: fentaNYL 75mcg/hr PATCH.TD72 TD SCH (12:53)
[2022-01-18] MEDS: LIDOCAINE PATCH REMOVAL MC SCH (21:58)
[2022-01-19] MEDS: MAG HYDROX/ALH/SMC/DPHA/LIDO 240 ML MOUTHWASH MM SCH ×3 (00:53→11:47)
[2022-01-19] MEDS: POLYETHYLENE GLYCOL (HEALTHYLAX) 3350 17 GM PACKET PO SCH (09:02)
[2022-01-19] MEDS: ENOXAPARIN NA (PORCINE) 40 MG/0.4 ML DISP.SYRIN SQ SCH (09:02)
[2022-01-19] MEDS: FAMOTIDINE 20 MG TABLET PO SCH (09:02)
[2022-01-19] MEDS: MULTIVITAMINS (DAILY MVI) TABLET (FP) PO SCH (09:02)
[2022-01-19] MEDS: OFLOXACIN 0.3% OTIC SOLUTION 5 ML BOTTLE AU SCH (09:03)
[2022-01-19] MEDS: ONDANSETRON 4 MG/2 ML VIAL IVPUSH PRN (09:38)
[2022-01-19 11:52] VITALS: BP 97/70; PULSE 110; TEMP 98.1
== END 2022-01-19 13:03 | disposition home or self-care (01) | DRG 247 ==
LOC: JER 21:21 → JERBED 12-29 02:15 → J7W 12-29 08:12
PROVIDERS: ADMIT Hospitalist; ATTEND Nurse Practitioner Family
PROC: 0W9930Z Drainage of Right Pleural Cavity with Drainage Device, Percutaneous Approach (ICD-10-PCS; principal; 2022-01-07)
DX: K56.600 Partial intestinal obstruction, unspecified as to cause (principal); C18.9 Malignant neoplasm of colon, unspecified; J91.0 Malignant pleural effusion; C78.00 Secondary malignant neoplasm of unspecified lung; N13.30 Unspecified hydronephrosis; Z93.6 Other artificial openings of urinary tract status; Z51.5 Encounter for palliative care; B37.0 Candidal stomatitis; C78.01 Secondary malignant neoplasm of right lung; R00.0 Tachycardia, unspecified; R10.9 Unspecified abdominal pain; R11.2 Nausea with vomiting, unspecified; R63.0 Anorexia; Z79.01 Long term (current) use of anticoagulants; Z85.43 Personal history of malignant neoplasm of ovary; Z66 Do not resuscitate
CPT/HCPCS: 32550; 36415; 71045-TC-FY; 71046-TC-FY; 74018-TC-FY; 74177-TC; 80053; 82042; 82150; 82465; 82945; 83605; 83615; 83690; 83735; 83986; 84100; 84157; 84478; 85025; 85610; 87070; 87075; 87102; 87116; 87205; 87206; 87210; 88108; 88305-TC; 93005; 93010; 94761; 97116-GP; 97161-GP; 99285-25; C9803-CS; Q9967; U0003; U0005

== ENCOUNTER 2022-02-04 10:35 | Emergency (ER) | payer OTHER ==
[2022-02-04] MEDS ORDERED: SODIUM CHLORIDE 1,293 ML IV ONE (11:00)
[2022-02-04 11:29] VITALS: BMI 16.8
[2022-02-04 11:36] LABS: VENOUS BASE EXCESS -6.1 mmol/L (-2-2); VENOUS O2 SATURATION 15.5 % (70-80)
[2022-02-04 11:38] LABS: HEMATOCRIT 30.4 % (32.4-45.2); HEMOGLOBIN 9.9 GM/dL (10.7-15.3); MCH 28.5 pg (25.7-33.7); MCHC 32.5 g/dl (32.0-36.0); MEAN CELL VOLUME 87.7 fl (80-96); MEAN PLT VOLUME 7.6 fl (7.5-11.1); PLATELET COUNT 388 10^3/uL (134-434); RBC 3.47 M/mm3 (3.60-5.2); RDW 23.5 % (11.6-15.6); WHITE BLOOD COUNT 8.8 K/mm3 (4.0-10.0)
[2022-02-04 11:45] LABS: INR 1.88 (0.83-1.09); PROTHROMBIN TIME (PATIENT) 21.7 SEC (9.7-13.0)
[2022-02-04 11:48] LABS: ACTIVATED PTT 36.7 SECONDS (25.2-36.5)
[2022-02-04 11:53] LABS: VENOUS PH 7.104 (7.310-7.410)
[2022-02-04 12:00] LABS: CHLORIDE 102 mmol/L (98-107); SODIUM 137 mmol/L (136-145)
[2022-02-04 12:03] LABS: BLOOD UREA NITROGEN 50.1 mg/dL (7-18); CO2 23 mmol/L (21-32); GLUCOSE,RANDOM 132 mg/dL (74-106)
[2022-02-04 12:04] LABS: ALBUMIN 1.8 g/dl (3.4-5.0)
[2022-02-04 12:06] LABS: SGOT/AST 688 U/L (15-37)
[2022-02-04 12:07] LABS: CREATININE 1.7 mg/dL (0.55-1.3); SGPT/ALT 197 U/L (13-61)
[2022-02-04 12:08] LABS: BILIRUBIN,TOTAL 1.3 mg/dL (0.2-1)
[2022-02-04 12:09] LABS: ALK PHOS 442 U/L (45-117)
[2022-02-04 12:12] LABS: ANION GAP 13 MMOL/L (8-16)
[2022-02-04 12:19] VITALS: TEMP 98.1
[2022-02-04 12:29] LABS: ANISOCYTOSIS 1+; MACROCYTOSIS 0
[2022-02-04 12:57] VITALS: BP 81/59; PULSE 112; RESP 14
[2022-02-04 13:48] LABS: LACTIC ACID 4.3 mmol/L (0.4-2.0)
== END 2022-02-04 13:00 | disposition expired ==
LOC: JER 10:35
PROC: 3E0337Z Introduction of Electrolytic and Water Balance Substance into Peripheral Vein, Percutaneous Approach (ICD-10-PCS; principal; 2022-02-04)
DX: I46.9 Cardiac arrest, cause unspecified (principal); C78.5 Secondary malignant neoplasm of large intestine and rectum; J91.8 Pleural effusion in other conditions classified elsewhere
CPT/HCPCS: 36415; 70450-TC; 71045-TC-FY; 71275-TC; 74177-TC; 80053; 82272; 82553; 82803; 82962; 83605; 85025; 85610; 85730; 87040; 93005; 93010; 99285-25; C9803-CS; U0003; U0005